=== PATIENT | female | born 1960 | race Caucasian/White ===

== ENCOUNTER 2020-01-28 12:18 | Outpatient (REF) | payer MEDICARE, MEDICAID, SELFPAY ==
--- NOTE | 2020-01-28 13:20 | XR_ITS ---
EXAMINATION: XR KNEE, RIGHT CLINICAL INFORMATION: Knee pain COMPARISON: 07/13/2014 TECHNIQUE: Four views of the right knee. FINDINGS: Alignment is normal. There is moderate lateral joint space narrowing and osteophyte formation of the patellofemoral compartment. Lateral patellar tilt and lateral subluxation is observed on the sunrise view. There are marginal osteophytes of the mildly degenerated medial and lateral tibiofemoral compartments. No fracture or joint effusion. XR/XR knee RT 4V IMPRESSION: * Tricompartment osteoarthritis of the right knee has worsened compared to 07/13/2014. * Lateral patellar subluxation is noted on the sunrise view. 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 No acute osseous injury.
== END 2020-01-28 12:19 | disposition home or self-care (01) ==
LOC: HO.LAB 12:18
PROVIDERS: Absent Provider Internal Medicine; PCP Internal Medicine; Visit Provider Internal Medicine
DX: Z20.828 Contact with and (suspected) exposure to other viral communicable diseases (principal)
CPT/HCPCS: 73564; C9803; U0003

== ENCOUNTER → 2020-03-28 09:21 | Outpatient (BNVA) | payer MEDICARE, MEDICAID, SELFPAY | PROVIDERS: PCP Internal Medicine; Visit Provider Psychiatry & Neurology Neurology | DX: Z13.89 Encounter for screening for other disorder (principal) | CPT/HCPCS: Q3014 ==

== ENCOUNTER → 2020-04-16 20:12 | Outpatient (REF) | payer MEDICARE, MEDICAID, SELFPAY | LOC: HO.SL 20:12 | PROVIDERS: PCP Internal Medicine; Visit Provider Psychiatry & Neurology Neurology | DX: G25.81 Restless legs syndrome (principal); G47.10 Hypersomnia, unspecified; R06.83 Snoring | CPT/HCPCS: 95810 ==

== ENCOUNTER → 2020-05-08 10:53 | Outpatient (REF) | payer MEDICARE, MEDICAID, SELFPAY ==
[2020-05-08 12:13] LABS: Estimated Average Glucose 111 mg/dL; Hemoglobin A1c % 5.5 %
[2020-05-08 12:33] LABS: Alanine Aminotransferase 26 U/L (0-31); Alkaline Phosphatase 62 U/L (39-117); Anion Gap 12 (12-20); Aspartate Amino Transferase 22 U/L (5-31); Bilirubin Total 0.4 mg/dL (0.0-1.0); Blood Urea Nitrogen 12 mg/dL (9-16); Carbon Dioxide 28 mmol/L (22-29); Chloride 106 mmol/L (96-108); Estimated Glomerular Filt Rate > 60; Glucose Random 102 mg/dL (60-115); Potassium 4.1 mmol/L (3.3-5.1); Sodium 142 mmol/L (135-145); Total Protein 7.8 g/dL (6.5-8.0)
[2020-05-08 12:54] LABS: Thyroid Stimulating Hormone 0.58 uIU/mL (0.32-4.0)
[2020-05-08 13:06] LABS: Folate 5.8 ng/mL (> or = 4.0); Vitamin B12 229 pg/mL (200-900)
== END ==
LOC: HO.SL 10:53
PROVIDERS: Absent Provider Psychiatry & Neurology Psychiatry; PCP Internal Medicine; Visit Provider Psychiatry & Neurology Neurology
DX: G47.10 Hypersomnia, unspecified (principal); R06.83 Snoring; E03.9 Hypothyroidism, unspecified; F31.75 Bipolar disorder, in partial remission, most recent episode depressed; Z79.899 Other long term (current) drug therapy
CPT/HCPCS: 36415; 80053; 82607; 82746; 83036; 84443; 95806

== ENCOUNTER → 2020-05-09 09:57 | Outpatient (BNVA) | payer MEDICARE, MEDICAID, SELFPAY | PROVIDERS: PCP Internal Medicine; Visit Provider Orthopaedic Surgery | DX: M22.2X1 Patellofemoral disorders, right knee (principal) | CPT/HCPCS: 99202 ==

== ENCOUNTER → 2020-05-30 10:18 | Outpatient (BNVA) | payer MEDICARE, MEDICAID, SELFPAY | PROVIDERS: PCP Internal Medicine; Visit Provider Psychiatry & Neurology Neurology | DX: Z13.89 Encounter for screening for other disorder (principal) | CPT/HCPCS: Q3014 ==

== ENCOUNTER 2020-08-30 10:46 | Outpatient (RCR) | payer MEDICARE, MEDICAID, SELFPAY ==
--- NOTE | 2020-08-30 14:06 | MHC.PT.EP ---
[facility] [place] Office [place] Office [place] Office [address] Karen Cadena [address] [phone] F: [phone] F: [phone] F: [phone] F: [phone] Physical Therapy Plan of Care Date of Evaluation: Date of Surgery: N/A Diagnosis: pain in unspecified knee Assessment: pt's signs and symptoms consistent w/ general deconditioning and knee OA. pt presents to physical therapy with pain, decreased range of motion, decreased strength, impaired functional mobility, impaired postural awareness, and gait deviations. pt is a fair candidate for skilled PT due to age, potential remediation of impairments, typical disease/condition progression and prognosis, comorbidities, and motivation. pt would benefit from tailored strengthening and stretching exercise program, functional training, gait training, postural re-training, neuromuscular re-education, modalities as needed for pain, equipment safety demonstration. Frequency and Duration: The patient will be seen 2x/wk for 4 wks Short Term Goals: pt will be I /w HEP to promote self-management of condition. pt will remediate B knee extension to 0 degrees to normalize gait on even ground w/ LRAD. Assistant Baseball Coach Goals: pt will report a statistically significant improvement in self-reported outcome measure, LEFI, to promote return to PLOF. pt will ascend/descend 5 stairs w/ LRAD using reciprocal pattern to promote ease in accessing laundry in basement. Treatment Plan: Modalities to reduce pain, spasms and effusion. Manual therapy to restore motion and function. Therapeutic exercise to improve strength and flexibility. Neuromuscular re-education for posture and balance. Therapeutic activities to return to functional activities of daily living. Electronically signed by: Pooja Thrasher PT, DPT Please sign and return to therapist. Thank you for your referral.
--- NOTE | 2020-09-12 13:29 | MHC.PT.DC ---
[facility] [place] Office [place] Office [place] Office [address] Cadena 140 [facility] [phone] F: [phone] F: [phone] F: [phone] F: [phone] Physical Therapy Discharge Report Diagnosis: pain in unspecified knee Date of Surgery: N/A Date of Evaluation: 08/30/20 Date of Discharge: 09/12/20 Treatments to Date: 1 Cancellations to Date: 2 No Shows to Date: 0 Discharge Status: Patient Elected to Stop Discharge Summary: The patient discharged herself from physical therapy. She is discharged from this physical therapy plan of care at this time. Electronically signed by: Pooja Thrasher PT, DPT Please sign and return to therapist. Thank you for your referral.
== END 2020-09-12 13:29 | disposition home or self-care (01) ==
LOC: HO.PT 10:46
PROVIDERS: PCP Internal Medicine; Visit Provider Internal Medicine
DX: M25.569 Pain in unspecified knee (principal)
CPT/HCPCS: 97110; 97161

== ENCOUNTER 2020-11-06 07:13 | Outpatient (REF) | payer MEDICARE, MEDICAID, SELFPAY | END 2020-11-06 07:14 | disposition home or self-care (01) | LOC: HO.HOSX 07:13 | PROVIDERS: Visit Provider Physician Assistant | DX: Z13.89 Encounter for screening for other disorder (principal) ==

== ENCOUNTER 2020-12-25 12:02 | Emergency (ER) | payer MEDICARE, MEDICAID, SELFPAY ==
--- NOTE | ~2020-12-25 | CT_ITS ---
EXAMINATION: CT ABDOMEN AND PELVIS WITHOUT CONTRAST CLINICAL INFORMATION: 60-year-old female with nausea and vomiting. COMPARISON: None TECHNIQUE: Multidetector volumetric imaging was performed from the superior aspect of the liver through the pubic symphysis. Sagittal and coronal reformatted images were obtained on the technologist's workstation. This CT examination was performed using dose optimization techniques as appropriate, variously including the following: *Automated exposure control *Adjustment of mA and/or kV according to patient size (this includes techniques or standardized protocols for targeted exams where dose is matched to indication/reason for exam; i.e. extremities or head) *Use of iterative reconstruction technique DLP: 869 mGy-cm FINDINGS: Visualized lung bases are well aerated. The liver demonstrates normal size, contour and attenuation. The gallbladder is normal in appearance. The pancreas, spleen and adrenal glands are unremarkable. Symmetrically sized kidneys. No renal calculi or hydronephrosis bilaterally. Normal caliber loops of small and large bowel. Normal appendix. Normal caliber abdominal aorta. No retroperitoneal lymphadenopathy. Tiny fat-containing umbilical hernia. The bladder is normal in appearance. Unremarkable CT appearance of the uterus. No gross free pelvic fluid. No inguinal lymphadenopathy. Moderate diffuse degenerative changes of the spine. Moderate to severe degenerative changes of the right hip. CT/CT abdomen pelvis wo con IMPRESSION: -No CT evidence for acute abnormality within the abdomen or pelvis. -Moderate to severe degenerative changes of the right hip.
--- NOTE | ~2020-12-25 | XR_ITS ---
EXAMINATION: XR CHEST CLINICAL INFORMATION: Shortness of breath COMPARISON: None TECHNIQUE: Frontal view of the chest was obtained. FINDINGS: Cardiac silhouette is normal in size. The lungs are mildly hypoinflated. There is mild asymmetric elevation of the right hemidiaphragm. There is no lobar consolidation. No pleural effusion or pneumothorax. Mild degenerative changes of the spine. XR/XR chest 1V IMPRESSION: No acute pulmonary pathology.
--- NOTE | 2020-12-25 12:11 | ECG_ITS ---
Test Reason : chest pain Blood Pressure : / mmHG Vent. Rate : 086 BPM Atrial Rate : 086 BPM P-R Int : 156 ms QRS Dur : 128 ms QT Int : 420 ms P-R-T Axes : 020 -47 089 degrees QTc Int : 502 ms Normal sinus rhythm Left axis deviation RSR' or QR pattern in V1 suggests right ventricular conduction delay Left anterior fascicular block Nonspecific T wave abnormality Lateral leads Abnormal ECG Intra-ventricular conduction delay is new Left anterior fascicular block is new T-wave inversion in Lateral leads is new Referred By: Adelia Belle Electronically Signed By:UYEN VANCE MD
[2020-12-25 12:13] VITALS: BP 131/83; BP 160/90; PULSE 93; PULSE 98; TEMP 36.7; O2SAT 100; BMI 42.1
--- NOTE | 2020-12-25 12:23 | ED.NAVMDI ---
HPI - Nausea/Vomiting/Diarrhea General Chief complaint: Nausea/Vomiting/Diarrhea Stated complaint: N/V X'S 2 HOURS, FULLY VACCINATED Time Seen by Provider: 12/25/20 12:11 History of Present Illness HPI Narrative: Patient is a 60-year-old female presents today with having nausea vomiting. No diarrhea. Symptoms ongoing for about 2 days. Patient has a history of bipolar. History of being on lithium. No fever no chills no chest pain or diaphoresis. Patient from home. No cough no congestion or upper respiratory symptoms. Patient is vaccinated for COVID. Vomiting mostly food. No history of abdominal surgery in the past. Related Data Home Medications Medication Instructions Recorded Confirmed atorvastatin 20 mg tablet mg PO 12/30/19 11/24/20 lithium carbonate 450 mg mg PO 12/30/19 11/24/20 tablet,extended release pantoprazole 40 mg tablet,delayed mg PO 12/30/19 11/24/20 release quetiapine 25 mg tablet 50 mg PO BEDTIME tab 12/30/19 07/28/20 cholecalciferol (vitamin D3) 50 50 mcg PO DAILY 03/22/20 11/24/20 mcg (2,000 unit) capsule vortioxetine 20 mg tablet 20 mg PO DAILY 03/22/20 11/24/20 cariprazine 3 mg capsule mg PO 07/14/20 11/24/20 bupropion HCl 150 mg tablet,12 hr mg PO 11/24/20 11/24/20 sustained-release zolpidem 5 mg tablet 25 mg PO BEDTIME tab 11/24/20 11/24/20 Previous Rx's Medication Instructions Recorded levothyroxine 100 mcg tablet 75 mcg PO DAILY #90 tab 02/15/20 ibuprofen 800 mg tablet 800 mg PO Q8H #90 tab 05/09/20 ondansetron HCl 4 mg tablet 4 mg PO Q8H PRN #10 tab 12/25/20 (Zofran) Allergies Allergy/AdvReac Type Severity Reaction Status Date / Time No Known Allergies Allergy Verified 11/24/20 10:29 Review of Systems Review of Systems: Positive nausea vomiting PMFSH Past Medical History Attestation statement: The following information was validated with the patient. Medical History Knee pain Morbid obesity Post-menopausal Screening for breast cancer Screening for colon cancer Surgical History No pertinent past surgical history Family History Family History Father Diabetes Hypertension CVD (cardiovascular disease) Mother Diabetes Sister Multiple sclerosis Brother Acute Crohn's disease Other Mental health disorder Social History Social History Housing: House Alcohol intake: current Alcohol intake frequency: holidays/special occasions only Patient Tobacco Use Status: Never used Tobacco Years Smoked: 1 Use of substances other than those prescribed or required for medical reasons: No Advance Directives: No Advance Directives Information Provided: No Patient : No service: No Current occupational status: unemployed Physical Exam Vital Signs: Vital Signs: Last Vital Signs Temp 97.9 F 12/25/20 13:03 Pulse 85 12/25/20 13:03 Resp 16 12/25/20 13:03 BP 140/65 H 12/25/20 13:03 Pulse Ox 97 12/25/20 13:03 Body Mass Index 42.1 Appearance: Alert. Oriented X3. No acute distress. Eyes: Pupils equal, round and reactive to light. ENT: Pharynx normal. Neck: Normal inspection. Neck supple. No lymph nodes noted. No crepitus CVS: Normal heart rate and rhythm. Pulses normal. Normal S1 and S2 Respiratory: No respiratory distress. Breath sounds normal. No Wheezing. No rales Abdomen: Soft and nontender. No rigidity. No distention. good BS x4 Skin: Skin warm and dry. Normal skin color. Normal skin turgor. Extremities: No lower extremity edema. Neurovascular intact to all extremities. No Lacerations. No Rash Neuro: Oriented X 3. No motor deficit. No sensory deficit. Moving all extermities. No slurred speech MDM - Nausea/Vomiting/Diarrhea MDM Narrative Medical decision making narrative: Patient's CT scan of the abdomen pelvis showed no acute evidence of obstruction. Labs are normal. Chest x-ray was negative for any acute evidence of pneumonia. Patient's BNP normal no evidence for congestive heart failure. Patient's EKG did showed a sinus pattern heart rate was 80 OH is normal QRS suggestive of in intraventricular delay. There is also a QTC that was 500. Patient has no acute ST segment elevation. Well appearing. Patient's troponin was negative. Liver profile normal symptom has since resolved. Patient's lithium slightly elevated 1.5 with a fairly normal kidney function will discharge patient home. In stable condition. Medical Records Attestation: I reviewed the patient's medical records. Lab Data Attestation: I reviewed the patient's lab results. Result diagrams: 12/25/20 13:01 12/25/20 13: Labs: Lab Results 12/25/20 12/25/20 12/25/20 Range/Units 13: 13: 13: WBC 8.5 (4.8-10.8) X10*3/uL RBC 4.77 (4.20-5.50) X10*6/uL Hgb 14.2 (12.0-16.0) g/dl Hct 43.0 (37.0-47.0) % MCV 90.1 (80.0-98.0) fL MCH 29.8 (27.0-33.0) pg MCHC 33.0 (31.0-35.0) g/dl RDW 13.2 (11.0-16.0) % Plt Count 233 (160-400) X10*3/uL MPV 10.8 (9.4-12.3) fL Immature Gran % (Auto) 0.6 H (0.0-0.4) % Neut % (Auto) 69.4 (45-73) % Lymph % (Auto) 18.9 L (20-40) % [place] % (Auto) 9.4 (2-11) % Eos % (Auto) 1.2 (0-4) % Baso % (Auto) 0.5 (0-2) % Lymph # (Auto) 1.6 (1.2-4.9) X10*3/uL [place] # (Auto) 0.8 (0.1-1.2) X10*3/uL Eos # (Auto) 0.1 (0.0-0.4) X10*3/uL Baso # (Auto) 0.0 (0.0-0.2) X10*3/uL Abs Immat Gran (auto) 0.05 H (0.00-0.03) X10*3/uL Absolute Neuts (auto) 5.9 (2.0-8.3) x10*3/uL Absolute Nucleated RBC 0.000 (0.0-0.012) X10*3/uL Nucleated RBC % (auto) 0.0 (0.0-0.2) /100WBC Sodium 138 (135-145) mmol/L Potassium 3.1 L D (3.3-5.1) mmol/L Chloride 102 (96-108) mmol/L Carbon Dioxide 26 (22-29) mmol/L Anion Gap 13 (12-20) BUN 14 (9-16) mg/dL Creatinine 1.20 (0.5-1.4) mg/dL Estim Creat Clear Calc 53.0 Estimated GFR 46 Random Glucose 128 H (60-115) mg/dL Calcium 9.8 D (8.4-10.2) mg/dL Total Bilirubin 0.8 (0.0-1.0) mg/dL Direct Bilirubin 0.4 (0.0-0.5) mg/dL AST 24 (5-31) U/L ALT 24 (0-31) U/L Alkaline Phosphatase 87 D (39-117) U/L Troponin I High Sens (<3.5-17.0) ng/L B-Natriuretic Peptide (<100) pg/mL Total Protein 8.0 (6.5-8.0) g/dL Albumin 4.0 (3.5-5.0) g/dL [place] 1.51 H* (0.60-1.20) mmol/L 12/25/20 12/25/20 Range/Units 13:39 13:39 WBC (4.8-10.8) X10*3/uL RBC (4.20-5.50) X10*6/uL Hgb (12.0-16.0) g/dl Hct (37.0-47.0) % MCV (80.0-98.0) fL MCH (27.0-33.0) pg MCHC (31.0-35.0) g/dl RDW (11.0-16.0) % Plt Count (160-400) X10*3/uL MPV (9.4-12.3) fL Immature Gran % (Auto) (0.0-0.4) % Neut % (Auto) (45-73) % Lymph % (Auto) (20-40) % [place] % (Auto) (2-11) % Eos % (Auto) (0-4) % Baso % (Auto) (0-2) % Lymph # (Auto) (1.2-4.9) X10*3/uL [place] # (Auto) (0.1-1.2) X10*3/uL Eos # (Auto) (0.0-0.4) X10*3/uL Baso # (Auto) (0.0-0.2) X10*3/uL Abs Immat Gran (auto) (0.00-0.03) X10*3/uL Absolute Neuts (auto) (2.0-8.3) x10*3/uL Absolute Nucleated RBC (0.0-0.012) X10*3/uL Nucleated RBC % (auto) (0.0-0.2) /100WBC Sodium (135-145) mmol/L Potassium (3.3-5.1) mmol/L Chloride (96-108) mmol/L Carbon Dioxide (22-29) mmol/L Anion Gap (12-20) BUN (9-16) mg/dL Creatinine (0.5-1.4) mg/dL Estim Creat Clear Calc Estimated GFR Random Glucose (60-115) mg/dL Calcium (8.4-10.2) mg/dL Total Bilirubin (0.0-1.0) mg/dL Direct Bilirubin (0.0-0.5) mg/dL AST (5-31) U/L ALT (0-31) U/L Alkaline Phosphatase (39-117) U/L Troponin I High Sens 5.8 (<3.5-17.0) ng/L B-Natriuretic Peptide 12 (<100) pg/mL Total Protein (6.5-8.0) g/dL Albumin (3.5-5.0) g/dL P[place] (0.60-1.20) mmol/L Discharge Plan Discharge Clinical Impression: Vomiting Patient Disposition: Home, Self-Care Instructions: Acute Nausea and Vomiting (ED) Prescriptions: New ondansetron HCl [Zofran] 4 mg tablet 4 mg PO Q8H PRN (Reason: nausea and vomiting) Qty: 10 RF: 0 No Action levothyroxine 100 mcg tablet 75 mcg PO DAILY Qty: 90 RF: 8 pantoprazole 40 mg tablet,delayed release (DR/EC) PO RF: 0 atorvastatin 20 mg tablet PO RF: 0 lithium carbonate 450 mg tablet extended release PO RF: 0 quetiapine 25 mg tablet 50 mg PO BEDTIME RF: 0 cholecalciferol (vitamin D3) 50 mcg (2,000 unit) capsule 50 mcg PO DAILY RF: 0 vortioxetine 20 mg tablet 20 mg PO DAILY RF: 0 Vraylar 3 mg capsule PO RF: 0 bupropion HCl 150 mg tablet sustained-release 12 hr PO RF: 0 zolpidem 5 mg tablet 25 mg PO BEDTIME RF: 0 ibuprofen 800 mg tablet 800 mg PO Q8H Qty: 90 RF: 3 Referrals: Arvind Baez MD [Primary Care Provider] - 2 days
[2020-12-25 13:03] VITALS: BP 140/65; PULSE 85; RESP 16; TEMP 36.6; O2SAT 97
[2020-12-25] MEDS: 0.9 % Sodium Chloride 1,000 ML 999 ML IV (13:03)
[2020-12-25 13:05] LABS: MANUAL DIFF FLAG NO
[2020-12-25 13:11] LABS: Basophils Percent Auto 0.5 % (0-2); Eosinophils Absolute Auto 0.1 X10*3/uL (0.0-0.4); Eosinophils Percent Auto 1.2 % (0-4); Hemoglobin 14.2 g/dl (12.0-16.0); Imm Gran Abs Auto 0.05 X10*3/uL (0.00-0.03); Imm Gran Pct Auto 0.6 % (0.0-0.4); Lymphocytes Absolute Auto 1.6 X10*3/uL (1.2-4.9); Lymphocytes Percent Auto 18.9 % (20-40); Mean Corpuscular Hemoglobin 29.8 pg (27.0-33.0); Mean Corpuscular Volume 90.1 fL (80.0-98.0); Mean Platelet Volume 10.8 fL (9.4-12.3); Monocytes Absolute Auto 0.8 X10*3/uL (0.1-1.2); Monocytes Percent Auto 9.4 % (2-11); Neutrophils Absolute Auto 5.9 x10*3/uL (2.0-8.3); Neutrophils Percent Auto 69.4 % (45-73); Platelet Count 233 X10*3/uL (160-400); Red Blood Count 4.77 X10*6/uL (4.20-5.50); Red Cell Distribution Width 13.2 % (11.0-16.0); White Blood Count 8.5 X10*3/uL (4.8-10.8)
[2020-12-25] MEDS: ondansetron HCL 4 MG/2 ML VIAL IVPUSH (13:13)
[2020-12-25 13:26] LABS: Lithium 1.51 mmol/L (0.60-1.20)
[2020-12-25 13:28] LABS: Alanine Aminotransferase 24 U/L (0-31); Alkaline Phosphatase 87 U/L (39-117); Anion Gap 13 (12-20); Aspartate Amino Transferase 24 U/L (5-31); Bilirubin Direct 0.4 mg/dL (0.0-0.5); Bilirubin Total 0.8 mg/dL (0.0-1.0); Blood Urea Nitrogen 14 mg/dL (9-16); Calcium 9.8 mg/dL (8.4-10.2); Carbon Dioxide 26 mmol/L (22-29); Chloride 102 mmol/L (96-108); Estimated Glomerular Filt Rate 46; Glucose Random 128 mg/dL (60-115); Potassium 3.1 mmol/L (3.3-5.1); Sodium 138 mmol/L (135-145)
[2020-12-25 14:09] LABS: B Type Natriuretic Peptide 12 pg/mL (<100)
[2020-12-25 14:10] LABS: Troponin-I High Sensitivity 5.8 ng/L (<3.5-17.0)
== END 2020-12-25 15:34 | disposition home or self-care (01) ==
PROVIDERS: Emergency Provider Emergency Medicine Emergency Medical Services; PCP Internal Medicine
DX: R11.2 Nausea with vomiting, unspecified (principal); R10.9 Unspecified abdominal pain; R06.02 Shortness of breath; R07.89 Other chest pain; F31.9 Bipolar disorder, unspecified; Z79.899 Other long term (current) drug therapy
CPT/HCPCS: 36415; 71045; 74176; 80048; 80076; 80178; 83880; 84484; 85025; 93005; 96361; 96374; 99284; J2405

== ENCOUNTER 2021-01-24 12:29 | Inpatient (IN) | payer MEDICARE, MEDICAID, SELFPAY ==
--- NOTE | 2021-01-24 | ECG_ITS ---
Test Reason : med clearance Blood Pressure : / mmHG Vent. Rate : 072 BPM Atrial Rate : 072 BPM P-R Int : 174 ms QRS Dur : 114 ms QT Int : 434 ms P-R-T Axes : 022 -44 044 degrees QTc Int : 475 ms Normal sinus rhythm Left axis deviation Left ventricular hypertrophy ( R in aVL , Hero product , Romhilt-Simon ) Abnormal ECG When compared with ECG of 25-DEC-2020 12:50, T wave inversion no longer evident in Lateral leads Referred By: Regan Quick Electronically Signed By:Robert Carrillo
--- NOTE | ~2021-01-24 | MR_ITS ---
EXAMINATION: MR BRAIN WITHOUT CONTRAST CLINICAL INFORMATION: Confusion. Weakness. Hypoxic injury. COMPARISON: CT head from 05/29/2009. TECHNIQUE: MRI of the brain was obtained using routine sequences without contrast. FINDINGS: No focal restricted diffusion is demonstrated to suggest acute or subacute cerebral ischemia. No evidence of acute or chronic hemorrhagic products on heme-sensitive imaging. Scattered periventricular and deep white matter T2 FLAIR hyperintensities consistent with mild underlying microangiopathy. Proportional prominence of the ventricles and sulcal spaces without evidence of obstructive hydrocephalus. No abnormal mass effect. No midline shift. Normal appearance of the pituitary gland. Normal positioning of the cerebellar tonsils. Normal arterial and venous vascular flow voids are present. Normal, homogeneous marrow signal. Mild mucosal thickening of the paranasal sinuses. No signal abnormalities within the mastoids. MR/MR head/brain wo con IMPRESSION: 1. No acute intracranial abnormalities. 2. Mild underlying microangiopathy and generalized cerebral volume loss.
[2021-01-24 13:09] VITALS: BP 145/89; PULSE 92; RESP 18; TEMP 37.2; O2SAT 93; BMI 41.6
--- NOTE | 2021-01-24 14:49 | ED.PSYCH ---
HPI - Psych General Chief Complaint: Psychiatric Symptoms Stated Complaint: psych eval Time Seen by Provider: 01/24/21 12:36 Source: patient, old records reviewed ([facility] ED notes from 01/04/2021) and other (Discussion with Dr. Iqbal) Mode of arrival: ambulatory Limitations: other (Patient has memory deficits regarding her care) History of Present Illness HPI Narrative: 60-year-old female who was brought to the emergency department for evaluation, medical clearance for admission to the psychiatric service. The patient was initially seen at [facility] on 01/04/2021 for altered mental status. The patient states that she does not have a very good memory of these events. She states that she was talking to a friend on the phone and her friend thought that the patient speech was slurred. The friend called 911 and police did a well check on the patient. According to the notes from [facility] the patient's house was in ?disgusting and there was feces smeared all over the bed and the house smelled like urine . The patient was evaluated at [facility] emergency department and then transferred to a rehab center. The patient states that she was at rehab for 2-3 weeks and got out today and her sister brought to the [facility] for further evaluation of her psychiatric condition The patient states that while she was at the rehab center she was having both visual and auditory hallucinations. She states that she was also having paranoid thoughts and difficulty with her memory. The patient states that she has been having pain in her right knee and right leg and now is using a walker to ambulate. She states she was also getting physical therapy to her right lower extremity. Dr. Iqbal was concerned that patient may have accidentally overdosed 2-3 weeks prior and this may have been the cause for her slurred speech. In reviewing the records at [facility], the patient did not have any brain imaging studies. Dr. Iqbal is requesting an MRI of the brain to rule out stroke verses possible hypoxic injury or other causes for her change in mental status. Related Data Home Medications Medication Instructions Recorded Confirmed atorvastatin 20 mg tablet 20 mg PO BEDTIME 12/30/19 01/24/21 lithium carbonate 450 mg 450 mg PO DAILY 12/30/19 01/24/21 tablet,extended release pantoprazole 40 mg tablet,delayed 40 mg PO DAILY 12/30/19 01/24/21 release vortioxetine 20 mg tablet 20 mg PO DAILY 03/22/20 01/24/21 cariprazine 3 mg capsule 3 mg PO DAILY 07/14/20 01/24/21 zolpidem 5 mg tablet 5 mg PO BEDTIME tab 11/24/20 01/24/21 bupropion HCl 200 mg tablet,12 hr 1 tab PO QAM 01/24/21 01/24/21 sustained-release levothyroxine 100 mcg tablet 100 mcg PO DAILY 01/24/21 01/24/21 Previous Rx's Medication Instructions Recorded ondansetron HCl 4 mg tablet 4 mg PO Q8H PRN #10 tab 12/25/20 (Zofran) Allergies Allergy/AdvReac Type Severity Reaction Status Date / Time No Known Allergies Allergy Verified 11/24/20 10:29 Review of Systems Review of Systems: Yes all other systems are reviewed and are negative [facility] Past Medical History Medical History Knee pain Morbid obesity Post-menopausal Screening for breast cancer Screening for colon cancer Surgical History No pertinent past surgical history Family History Family History Father Diabetes Hypertension CVD (cardiovascular disease) Mother Diabetes Sister Multiple sclerosis Brother Acute Crohn's disease Other Mental health disorder Social History Social History Housing: House Alcohol intake: current Alcohol intake frequency: holidays/special occasions only Patient Tobacco Use Status: Never used Tobacco Years Smoked: 1 Advance Directives: No Advance Directives Information Provided: No Patient : No service: No Current occupational status: unemployed Physical Exam Vital Signs: Vital Signs: Last Vital Signs Temp 98.9 F 01/24/21 13:09 Pulse 92 01/24/21 13:09 Resp 18 01/24/21 13:09 BP 145/89 H 01/24/21 13:09 Pulse Ox 93 01/24/21 13:09 BMI result Body Mass Index 41.6 Const: Other: Very pleasant and cooperative female patient, she does not appear to be in distress. She is able to recount some details of events over the last 2-3 weeks but seemed to have some memory deficits and difficulty with discussing the timing of events. She does not appear to be in any distress HENMT: Head: Yes normal to inspection, Yes normocephalic and Yes atraumatic Ears: external ears normal General nose exam: Normal external nose present Face and sinus: Yes normal facial exam Mouth: Normal oral and palatal mucosa present Throat: Yes posterior oropharynx normal Eyes: General: appearance normal, both eyes and all related structures Pupils: Equal, round and reactive pupils present Neck: Neck: Yes normal visual inspection, Yes no lymphadenopathy, Yes trachea midline and Yes supple Chest: Chest palpation & inspection: normal inspection of the chest and normal palpation of entire chest wall Resp: Effort & Inspection: normal respiratory effort and able to speak in complete sentences Auscultation: clear to auscultation bilaterally Cardio: Rate: regular rate Rhythm: regular rhythm Heart sounds: S1 normal heart sound present, S2 normal heart sound present and no murmurs GI: Inspection: Yes normal to inspection Palpation (GI): Soft to palpation, nontender and no guarding Auscultation: normal bowel sounds : General: Yes no CVA tenderness Back/Spine/Pelvis: Back: no CVA tenderness Skin: General skin exam: no rashes or lesions noted Neuro: Cranial nerves: Yes CN's II-XII intact bilaterally and Yes Equal, round and reactive pupils present Cognition (Neuro): normal cognition Motor exam (neuro): 5/5 motor strength present throughout Extrem: General: Yes normal to inspection Psych: Appearance: grossly normal Speech and movement: Normal speech and movement present Affect: normal affect Attitude: cooperative Thought process: Normal thought process present Thought content: Normal thought content present, suicidality and no homicidality Course Course Course Narrative: 60-year-old female who presents emergency department for medical clearance for admission to the psychiatric service. The see HPI, while the patient was in rehab for the past 2-3 weeks , the patient states that been having auditory and visual hallucinations well as paranoid thoughts. She states that she does not have these problems at this time. Vital signs were unremarkable. Physical examination including neurologic exam was unremarkable. I ordered the following on the patient: CBC, CMP, COVID-19, urine drug screen, alcohol level, lipase, lithium level, salicylate level, acetaminophen level, urinalysis. I also ordered an MRI of the brain without contrast. 1937: Laboratory evaluation: CBC was normal. Elevated glucose of 180, elevated AST and ALT of 39 and 42, normal TSH. urinalysis was normal. U tox was negative. Alcohol is below detectable limits. Salicylate and acetaminophen were below detectable limits. Sisseton was subtherapeutic at 0.36. The patient will be admitted to the psychiatric service further evaluation and treatment. [facility] - Psych Lab Data Result diagrams: 01/24/21 15:20 01/24/21 15:20 Labs: Lab Results 01/24/21 01/24/21 01/24/21 Range/Units 14:46 15:20 15:20 WBC 9.5 (4.8-10.8) X10*3/uL RBC 4.56 (4.20-5.50) X10*6/uL Hgb 13.5 (12.0-16.0) g/dl Hct 43.7 (37.0-47.0) % MCV 95.8 (80.0-98.0) fL MCH 29.6 (27.0-33.0) pg MCHC 30.9 L (31.0-35.0) g/dl RDW 15.0 (11.0-16.0) % Plt Count 285 (160-400) X10*3/uL MPV 10.5 (9.4-12.3) fL Immature Gran % (Auto) 0.3 (0.0-0.4) % Neut % (Auto) 57.7 (45-73) % Lymph % (Auto) 31.2 (20-40) % Pershing % (Auto) 7.0 (2-11) % Eos % (Auto) 3.2 (0-4) % Baso % (Auto) 0.6 (0-2) % Lymph # (Auto) 3.0 (1.2-4.9) X10*3/uL Pershing # (Auto) 0.7 (0.1-1.2) X10*3/uL Eos # (Auto) 0.3 (0.0-0.4) X10*3/uL Baso # (Auto) 0.1 (0.0-0.2) X10*3/uL Abs Immat Gran (auto) 0.03 (0.00-0.03) X10*3/uL Absolute Neuts (auto) 5.5 (2.0-8.3) x10*3/uL Absolute Nucleated RBC 0.000 (0.0-0.012) X10*3/uL Nucleated RBC % (auto) 0.0 (0.0-0.2) /100WBC Sodium 140 (135-145) mmol/L Potassium 4.2 D (3.3-5.1) mmol/L Chloride 106 (96-108) mmol/L Carbon Dioxide 27 (22-29) mmol/L Anion Gap 11 L (12-20) BUN 13 (9-16) mg/dL Creatinine 1.23 (0.5-1.4) mg/dL Estim Creat Clear Calc 51.3 Estimated GFR 44 Random Glucose 118 H (60-115) mg/dL Calcium 9.9 (8.4-10.2) mg/dL Total Bilirubin 0.4 (0.0-1.0) mg/dL AST 39 H D (5-31) U/L ALT 42 H (0-31) U/L Alkaline Phosphatase 73 (39-117) U/L Total Protein 8.3 H (6.5-8.0) g/dL Albumin 4.1 (3.5-5.0) g/dL Lipase 25 (8-78) U/L TSH 1.85 (0.32-4.0) uIU/mL Urine Color Urine Appearance Urine pH (5.0-8.0) Ur Specific Hunter (1.005-1.025) Urine Protein (NEG-TRACE) MG/DL Urine Glucose (UA) (NEG) MG/DL Urine Ketones (NEG) MG/DL Urine Blood (NEG) Urine Nitrite (NEG) Ur Leukocyte Esterase (NEG) Salicylates < 5.0 L (15-30) mg/dL Urine Opiates Screen (Not Detect) Urine Fentanyl Screen (Not Detect) Acetaminophen < 1 (<30) mcg/mL Ur Barbiturates Screen (Not Detect) Ur Phencyclidine Scrn (Not Detect) Ur Amphetamines Screen (Not Detect) U Benzodiazepines Scrn (Not Detect) Sisseton (0.60-1.20) mmol/L Urine Cocaine Screen (Not Detect) U Marijuana (THC) Screen (Not Detect) Ethyl Alcohol mg/dL COVID-19 ([facility]) Negative (Negative) COVID-19 Clin Com See Note 01/24/21 01/24/21 01/24/21 Range/Units 15:20 15:20 16:29 WBC (4.8-10.8) X10*3/uL RBC (4.20-5.50) X10*6/uL Hgb (12.0-16.0) g/dl Hct (37.0-47.0) % MCV (80.0-98.0) fL MCH (27.0-33.0) pg MCHC (31.0-35.0) g/dl RDW (11.0-16.0) % Plt Count (160-400) X10*3/uL MPV (9.4-12.3) fL Immature Gran % (Auto) (0.0-0.4) % Neut % (Auto) (45-73) % Lymph % (Auto) (20-40) % Pershing % (Auto) (2-11) % Eos % (Auto) (0-4) % Baso % (Auto) (0-2) % Lymph # (Auto) (1.2-4.9) X10*3/uL Pershing # (Auto) (0.1-1.2) X10*3/uL Eos # (Auto) (0.0-0.4) X10*3/uL Baso # (Auto) (0.0-0.2) X10*3/uL Abs Immat Gran (auto) (0.00-0.03) X10*3/uL Absolute Neuts (auto) (2.0-8.3) x10*3/uL Absolute Nucleated RBC (0.0-0.012) X10*3/uL Nucleated RBC % (auto) (0.0-0.2) /100WBC Sodium (135-145) mmol/L Potassium (3.3-5.1) mmol/L Chloride (96-108) mmol/L Carbon Dioxide (22-29) mmol/L Anion Gap (12-20) BUN (9-16) mg/dL Creatinine (0.5-1.4) mg/dL Estim Creat Clear Calc Estimated GFR Random Glucose (60-115) mg/dL Calcium (8.4-10.2) mg/dL Total Bilirubin (0.0-1.0) mg/dL AST (5-31) U/L ALT (0-31) U/L Alkaline Phosphatase (39-117) U/L Total Protein (6.5-8.0) g/dL Albumin (3.5-5.0) g/dL Lipase (8-78) U/L TSH (0.32-4.0) uIU/mL Urine Color Urine Appearance Urine pH (5.0-8.0) Ur Specific Hunter (1.005-1.025) Urine Protein (NEG-TRACE) MG/DL Urine Glucose (UA) (NEG) MG/DL Urine Ketones (NEG) MG/DL Urine Blood (NEG) Urine Nitrite (NEG) Ur Leukocyte Esterase (NEG) Salicylates (15-30) mg/dL Urine Opiates Screen Not Detected (Not Detect) Urine Fentanyl Screen Not Detected (Not Detect) Acetaminophen (<30) mcg/mL Ur Barbiturates Screen Not Detected (Not Detect) Ur Phencyclidine Scrn Not Detected (Not Detect) Ur Amphetamines Screen Not Detected (Not Detect) U Benzodiazepines Scrn Not Detected (Not Detect) Sisseton 0.36 L (0.60-1.20) mmol/L Urine Cocaine Screen Not Detected (Not Detect) U Marijuana (THC) Screen Not Detected (Not Detect) Ethyl Alcohol < 10 mg/dL COVID-19 ([facility]) (Negative) COVID-19 Clin Com 01/24/21 Range/Units 16:29 WBC (4.8-10.8) X10*3/uL RBC (4.20-5.50) X10*6/uL Hgb (12.0-16.0) g/dl Hct (37.0-47.0) % MCV (80.0-98.0) fL MCH (27.0-33.0) pg MCHC (31.0-35.0) g/dl RDW (11.0-16.0) % Plt Count (160-400) X10*3/uL MPV (9.4-12.3) fL Immature Gran % (Auto) (0.0-0.4) % Neut % (Auto) (45-73) % Lymph % (Auto) (20-40) % Pershing % (Auto) (2-11) % Eos % (Auto) (0-4) % Baso % (Auto) (0-2) % Lymph # (Auto) (1.2-4.9) X10*3/uL Pershing # (Auto) (0.1-1.2) X10*3/uL Eos # (Auto) (0.0-0.4) X10*3/uL Baso # (Auto) (0.0-0.2) X10*3/uL Abs Immat Gran (auto) (0.00-0.03) X10*3/uL Absolute Neuts (auto) (2.0-8.3) x10*3/uL Absolute Nucleated RBC (0.0-0.012) X10*3/uL Nucleated RBC % (auto) (0.0-0.2) /100WBC Sodium (135-145) mmol/L Potassium (3.3-5.1) mmol/L Chloride (96-108) mmol/L Carbon Dioxide (22-29) mmol/L Anion Gap (12-20) BUN (9-16) mg/dL Creatinine (0.5-1.4) mg/dL Estim Creat Clear Calc Estimated GFR Random Glucose (60-115) mg/dL Calcium (8.4-10.2) mg/dL Total Bilirubin (0.0-1.0) mg/dL AST (5-31) U/L ALT (0-31) U/L Alkaline Phosphatase (39-117) U/L Total Protein (6.5-8.0) g/dL Albumin (3.5-5.0) g/dL Lipase (8-78) U/L TSH (0.32-4.0) uIU/mL Urine Color DK YELLOW Urine Appearance CLEAR Urine pH 6.0 (5.0-8.0) Ur Specific Hunter 1.025 (1.005-1.025) Urine Protein NEG (NEG-TRACE) MG/DL Urine Glucose (UA) NEG (NEG) MG/DL Urine Ketones NEG (NEG) MG/DL Urine Blood NEG (NEG) Urine Nitrite NEG (NEG) Ur Leukocyte Esterase NEG (NEG) Salicylates (15-30) mg/dL Urine Opiates Screen (Not Detect) Urine Fentanyl Screen (Not Detect) Acetaminophen (<30) mcg/mL Ur Barbiturates Screen (Not Detect) Ur Phencyclidine Scrn (Not Detect) Ur Amphetamines Screen (Not Detect) U Benzodiazepines Scrn (Not Detect) Sisseton (0.60-1.20) mmol/L Urine Cocaine Screen (Not Detect) U Marijuana (THC) Screen (Not Detect) Ethyl Alcohol mg/dL COVID-19 ([facility]) (Negative) COVID-19 Clin Com Discharge Plan Discharge Clinical Impression: Depressed affect Patient Disposition: Admitted As Inpatient Interventions: Admission Worksheet (ED) Last Done: 01/24/21 18:11 Discharge Date/Time: 01/24/21 18:12
[2021-01-24 15:17] LABS: COVID-19 Test Negative (Negative)
[2021-01-24 15:25] LABS: MANUAL DIFF FLAG NO
[2021-01-24 15:27] LABS: Basophils Absolute Auto 0.1 X10*3/uL (0.0-0.2); Basophils Percent Auto 0.6 % (0-2); Eosinophils Absolute Auto 0.3 X10*3/uL (0.0-0.4); Eosinophils Percent Auto 3.2 % (0-4); Hematocrit 43.7 % (37.0-47.0); Hemoglobin 13.5 g/dl (12.0-16.0); Imm Gran Abs Auto 0.03 X10*3/uL (0.00-0.03); Imm Gran Pct Auto 0.3 % (0.0-0.4); Lymphocytes Percent Auto 31.2 % (20-40); Mean Corpuscular HGB Conc 30.9 g/dl (31.0-35.0); Mean Corpuscular Hemoglobin 29.6 pg (27.0-33.0); Mean Corpuscular Volume 95.8 fL (80.0-98.0); Mean Platelet Volume 10.5 fL (9.4-12.3); Monocytes Absolute Auto 0.7 X10*3/uL (0.1-1.2); Neutrophils Absolute Auto 5.5 x10*3/uL (2.0-8.3); Neutrophils Percent Auto 57.7 % (45-73); Platelet Count 285 X10*3/uL (160-400); Red Blood Count 4.56 X10*6/uL (4.20-5.50); White Blood Count 9.5 X10*3/uL (4.8-10.8)
[2021-01-24 15:39] LABS: Lithium 0.36 mmol/L (0.60-1.20)
--- NOTE | 2021-01-24 15:40 | MHC.CARE ---
Pt is a 60 y/o Azeri speaking, , female who is previously unknown to the CARE Team.? Today, pt self-presented to the ED after speaking with Dr. Iqbal.? Dr. Iqbal explains to the CARE Team that he asked pt to present to the ED after he noted that she was experiencing sequential memory problems and upon receiving reports that her speech appeared slurred.? Pt reportedly had a fall and was in a physical rehab facility prior to her arrival here.? Pt has been medically cleared and is being assessed by the CARE Team to determine appropriate treatment recommendations.? Pt?s last inpatient hospitalization was approximately 7 years ago. ?Pt is alert and oriented x4, appears her stated age, and appears well groomed and is dressed in hospital attire.? Her speech and eye contact are within normal limits, though her thoughts appear, at times, disjointed.? She reports sleep and appetite as ?Ok?.? When asked to describe her mood, she began speaking on another topic.? Pt?s affect was flat.? She does not appear to be delusional or experiencing symptoms of psychosis.? She denies AVH though she did say she recently experienced auditory hallucinations while at rehab.? Pt denies SI, HI, and self-harm urges. Insight, judgement, memory, and concentration appear fair.? Impulse control was not assessed. Plan is for pt to be admitted to an inpatient psychiatric unit for safety and containment, mood stabilization, medication evaluation, participation in therapeutic milieu, and discharge planning to include pt?s current outpatient providers. Pt is agreeable to inpt admission.? CARE Team will conduct a statewide adult bed search. If placement is not secured within 24hrs, CARE Team will conduct a mental status update. Per Dr. Iqbal, pt requires a locked unit, and would not be safe in a lower level of care. This disposition is discussed with CARE Team by [facility] donor recruiter, Dr. Parker and discussed with ED Provider Harlan Gresham and pt?s nurse RN Harlan Allen. F31.75-Bipolar I d/o, current or most recent episode depressed F41.1 ? Generalized anxiety d/o
[2021-01-24 15:41] LABS: Ethanol < 10 mg/dL
[2021-01-24 15:46] LABS: Acetaminophen LAB < 1 mcg/mL (<30); Alanine Aminotransferase 42 U/L (0-31); Albumin Level 4.1 g/dL (3.5-5.0); Alkaline Phosphatase 73 U/L (39-117); Anion Gap 11 (12-20); Aspartate Amino Transferase 39 U/L (5-31); Bilirubin Total 0.4 mg/dL (0.0-1.0); Blood Urea Nitrogen 13 mg/dL (9-16); Calcium 9.9 mg/dL (8.4-10.2); Carbon Dioxide 27 mmol/L (22-29); Chloride 106 mmol/L (96-108); Creatinine Clr Calc Pharmacy 51.3; Estimated Glomerular Filt Rate 44; Glucose Random 118 mg/dL (60-115); Lipase 25 U/L (8-78); Potassium 4.2 mmol/L (3.3-5.1); Salicylate < 5.0 mg/dL (15-30); Sodium 140 mmol/L (135-145); Total Protein 8.3 g/dL (6.5-8.0)
[2021-01-24 16:51] LABS: Appearance Urine CLEAR; Color Urine DK YELLOW; Glucose Urine UA NEG (NEG); Leukocyte Esterase Urine NEG (NEG); Nitrite Urine NEG (NEG); Specific Gravity - Urine 1.025 (1.005-1.025); Urine Blood NEG (NEG); Urine Ketones NEG (NEG); Urine Protein NEG (NEG-TRACE)
[2021-01-24 17:10] LABS: Amphetamine Screen Urine Not Detected (Not Detect); Barbiturates, Urine Not Detected (Not Detect); Benzodiazepines Screen Urine Not Detected (Not Detect); Cannabinoid Screen Urine Not Detected (Not Detect); Cocaine Screen Urine Not Detected (Not Detect); Fentanyl, urine Not Detected (Not Detect); Opiate Screen Urine Not Detected (Not Detect); Phencyclidine Screen Urine Not Detected (Not Detect)
[2021-01-24 17:30] LABS: TSH reflex Free T4 1.85 uIU/mL (0.32-4.0)
[2021-01-24 18:00] VITALS: BP 118/74; PULSE 78; RESP 16; TEMP 36.1; O2SAT 100
[2021-01-24] MEDS: Atorvastatin Calcium 20 MG TABLET PO (21:32)
[2021-01-24] MEDS: Zolpidem Tartrate 5 MG TABLET PO (21:32)
--- NOTE | 2021-01-24 23:10 | PC.ADMIT ---
60 yo female admitted to [facility] at 1820 on a CV for psychiatric evaluation. Pt stated that she was talking with a friend and the friend stated she did not sound right to her so she called the police to do a check on her. When police arrived, observed that she was talking slowly and slurring her words, disoriented. Pt states she has no memory of the event. Pt states that she was brought to [place] ([facility] in [place] where she stayed for 2.5 weeks. Pt states that she was doing PT & OT there Pt stated that she believed the staff were talking about her and tended to isolate in her room. She did not appear to be certain if these were actual events or dreams, paranoia, etc. Upon her d/c, pt was brought to [facility] ER per Dr. Iqbal's request for psych evaluation. Pt is A&O, 5/10 anxiety, denies depression. Pt seemed to be forgetful at times losing track of the conversation. Pt has flights of ideas and is tangential when speaking and has disorganized thinking patterns. Pt denies SI, HI and AVH at this time. Pt denies ETOH and substance abuse/use.Pt MHx is limited to knee pain in right knee, and uses a walker for that reason. Pt psych dx is Bipolar Disorder, Generalized anxiety disorder and has a hx of suicide attempts since 15 yrs of age. Pt worried about her memory status and hopes to get assessment and help with that here. Pt received an MRI tonight. Orders obtained. Pt is on 15 minute safety checks.
[2021-01-25] MEDS: Levothyroxine Sodium 100 MCG TABLET PO (05:42)
[2021-01-25] MEDS: Omeprazole 20 MG CAPSULE.DR PO (05:42)
[2021-01-25 05:46] VITALS: BP 138/83; PULSE 85; RESP 18; TEMP 36.2; O2SAT 99
[2021-01-25 07:00] VITALS: BMI 39.3
[2021-01-25] MEDS: Vortioxetine Hydrobromide 20 MG TABLET PO (09:05)
[2021-01-25] MEDS: Cariprazine HCl 3 MG CAPSULE PO (09:05)
[2021-01-25] MEDS: buPROPion HCl XL 150 MG TAB.ER.24H PO (09:06)
[2021-01-25] MEDS: Lithium Carbonate ER 450 MG TABLET.ER PO (09:06)
[2021-01-25] MEDS: Acetaminophen 325 MG TABLET 650 MG PO (14:28)
--- NOTE | 2021-01-25 14:59 | P.HPPS_ITS ---
HPI Date of Service: 01/25/21 Chief Complaint: Depression Sources of Information: patient interviewed and chart reviewed Additional Sources of Information: sister [facility] rehab ctr HPI Subjective Notes: [place] Warning and Conditional Voluntary Healthcare Proxy: No Guardianship: No Medical Problems Affecting Mental Status: Yes Narrative: The patient is a 60-year-old single female living alone long history bipolar disorder, generalized anxiety and history of recurrent depression with past suicide attempts. The patient has gradually over number of years taking a downhill course missing multiple appointments with her physicians not following through on opportunities to leave the house and mostly has been spending most of her time at home often with her refer sleep cycle. Patient the past had been able to work on a regular basis but has not followed through generally in a number of years and has become increasingly isolative. Most recently she has been on Vraylar up to 3 mg daily Trintellix 20 mg daily Wellbutrin 100 50 mg daily lithium 450 mg at bedtime patient had been discontinued from Depakote. She does have Ambien 5 mg at bedtime as needed for sleep. Patient is unable to give a clear history but the patient over the last few weeks ago onto the emergency room on 2 occasions and appears to have stopped her psychiatric medication and may have been reporting them. She does not have clear memory about this but that she was brought to the emergency room secondary to multiple falls and confusion. She was medically screened at [facility] eventually 5 referred to rehab secondary to deconditioning and multiple falls. Patient is not using a walker she does have significant knee problems and an MRI completed in the emergency room showed atrophy but no evidence for CVA. delirium paranoia status post multiple falls confusional state unclear etiology Past Psychiatric History: Long history of bipolar disorder characterized by a hypomanic episodes not psychotic and much longer periods of quite significant depression. Patient has become increasingly isolated over the years with significant financial stress and burden feeling overwhelmed taking care of a house by herself that needs extensive repairs Patient does have a history of serious overdose attempts in psychiatric hospitalization in the past she has to go to the [facility]. Medical Evaluation Reviewed: Yes REPLACED BY [facility] Medical History (Updated 01/25/21 @ 17:18 by Ramin Iqbal MD) Generalized anxiety disorder Knee pain Morbid obesity Post-menopausal Screening for breast cancer Screening for colon cancer Suicide attempt by drug ingestion Surgical History No pertinent past surgical history Family History: Has a sister with MS Social History: Patient is single living in her family home of origin by herself. Patient is financially strapped house needs extensive repairs she has been quite isolative and not taking care of herself. She does have a sister with MS with whom she is close and also a brother Substance History: none Trauma History: none known Diagnostics Vital Signs (24Hr): Vital Signs - 24 hr 01/24/21 18:00 01/25/21 05:46 Temperature 96.9 F 97.2 F Pulse Rate 78 85 Respiratory Rate 16 18 Blood Pressure 118/74 138/83 Pulse Oximetry 100 99 BMI result Body Mass Index 39.3 Labs Results: 01/24/21 15:20 01/24/21 15:20 Labs: Laboratory Results - last 48 hr 01/24/21 01/24/21 01/24/21 14:46 15:20 15:20 WBC 9.5 RBC 4.56 Hgb 13.5 Hct 43.7 MCV 95.8 MCH 29.6 MCHC 30.9 L RDW 15.0 Plt Count 285 MPV 10.5 Immature Gran % (Auto) 0.3 Neut % (Auto) 57.7 Lymph % (Auto) 31.2 [place] % (Auto) 7.0 Eos % (Auto) 3.2 Baso % (Auto) 0.6 Lymph # (Auto) 3.0 [place] # (Auto) 0.7 Eos # (Auto) 0.3 Baso # (Auto) 0.1 Abs Immat Gran (auto) 0.03 Absolute Neuts (auto) 5.5 Absolute Nucleated RBC 0.000 Nucleated RBC % (auto) 0.0 Sodium 140 Potassium 4.2 D Chloride 106 Carbon Dioxide 27 Anion Gap 11 L BUN 13 Creatinine 1.23 Estim Creat Clear Calc 51.3 Estimated GFR 44 Random Glucose 118 H Calcium 9.9 Total Bilirubin 0.4 AST 39 H D ALT 42 H Alkaline Phosphatase 73 Total Protein 8.3 H Albumin 4.1 Lipase 25 TSH 1.85 Urine Color Urine Appearance Urine pH Ur Specific [place] Urine Protein Urine Glucose (UA) Urine Ketones Urine Blood Urine Nitrite Ur Leukocyte Esterase Salicylates < 5.0 L Urine Opiates Screen Urine Fentanyl Screen Acetaminophen < 1 Ur Barbiturates Screen Ur Phencyclidine Scrn Ur Amphetamines Screen U Benzodiazepines Scrn [place] Urine Cocaine Screen U Marijuana (THC) Screen Ethyl Alcohol COVID-19 ([facility]) Negative COVID-19 Clin Com See Note 01/24/21 01/24/21 01/24/21 15:20 15:20 16:29 WBC RBC Hgb Hct MCV MCH MCHC RDW Plt Count MPV Immature Gran % (Auto) Neut % (Auto) Lymph % (Auto) [place] % (Auto) Eos % (Auto) Baso % (Auto) Lymph # (Auto) [place] # (Auto) Eos # (Auto) Baso # (Auto) Abs Immat Gran (auto) Absolute Neuts (auto) Absolute Nucleated RBC Nucleated RBC % (auto) Sodium Potassium Chloride Carbon Dioxide Anion Gap BUN Creatinine Estim Creat Clear Calc Estimated GFR Random Glucose Calcium Total Bilirubin AST ALT Alkaline Phosphatase Total Protein Albumin Lipase TSH Urine Color Urine Appearance Urine pH Ur Specific [place] Urine Protein Urine Glucose (UA) Urine Ketones Urine Blood Urine Nitrite Ur Leukocyte Esterase Salicylates Urine Opiates Screen Not Detected Urine Fentanyl Screen Not Detected Acetaminophen Ur Barbiturates Screen Not Detected Ur Phencyclidine Scrn Not Detected Ur Amphetamines Screen Not Detected U Benzodiazepines Scrn Not Detected [place] 0.36 L Urine Cocaine Screen Not Detected U Marijuana (THC) Screen Not Detected Ethyl Alcohol < 10 COVID-19 ([facility]) COVID-19 [facility] Com 01/24/21 16:29 WBC RBC Hgb Hct MCV MCH MCHC RDW Plt Count MPV Immature Gran % (Auto) Neut % (Auto) Lymph % (Auto) [place] % (Auto) Eos % (Auto) Baso % (Auto) Lymph # (Auto) [place] # (Auto) Eos # (Auto) Baso # (Auto) Abs Immat Gran (auto) Absolute Neuts (auto) Absolute Nucleated RBC Nucleated RBC % (auto) Sodium Potassium Chloride Carbon Dioxide Anion Gap BUN Creatinine Estim Creat Clear Calc Estimated GFR Random Glucose Calcium Total Bilirubin AST ALT Alkaline Phosphatase Total Protein Albumin Lipase TSH Urine Color DK YELLOW Urine Appearance CLEAR Urine pH 6.0 Ur Specific [place] 1.025 Urine Protein NEG Urine Glucose (UA) NEG Urine Ketones NEG Urine Blood NEG Urine Nitrite NEG Ur Leukocyte Esterase NEG Salicylates Urine Opiates Screen Urine Fentanyl Screen Acetaminophen Ur Barbiturates Screen Ur Phencyclidine Scrn Ur Amphetamines Screen U Benzodiazepines Scrn [place] Urine Cocaine Screen U Marijuana (THC) Screen Ethyl Alcohol COVID-19 ([facility]) COVID-19 Clin Com Imaging Radiology Impressions: ITS Impressions Brain MRI 01/24/21 20:15 IMPRESSION: 1. No acute intracranial abnormalities. 2. Mild underlying microangiopathy and generalized cerebral volume loss. Meds/Allergies Meds Home Medications Acetaminophen (Acetaminophen 325 Mg Tablet) 650 mg PO Q6H PRN PRN Reason: Pain, Moderate (Pain Scale 4-6 Last Admin: 01/25/21 14:28 Dose: 650 mg Documented by: Atorvastatin Calcium (Atorvastatin Calcium 20 Mg Tablet) 20 mg PO BEDTIME [facility] Last Admin: 01/24/21 21:32 Dose: 20 mg Documented by: Bupropion HCl (Bupropion Hcl Xl 150 Mg Tab.Er.24h) 150 mg PO DAILY [facility] Last Admin: 01/25/21 09:06 Dose: 150 mg Documented by: Cariprazine (Cariprazine Hcl 1.5 Mg Capsule) 1.5 mg PO DAILY [facility] Levothyroxine Sodium (Levothyroxine Sodium 100 Mcg Tablet) 100 mcg PO DAILY@0600 [facility] Last Admin: 01/25/21 05:42 Dose: 100 mcg Documented by: [place] Carbonate ([place] Carbonate Er 450 Mg Tablet.Er) 450 mg PO DAILY [facility] Last Admin: 01/25/21 09:06 Dose: 450 mg Documented by: Omeprazole (Omeprazole 20 Mg Capsule.Dr) 20 mg PO DAILY@0630 [facility] Last Admin: 01/25/21 05:42 Dose: 20 mg Documented by: Ondansetron HCl (Ondansetron Odt 4 Mg Tab.Rapdis) 4 mg TRANSLINGU Q8H PRN PRN Reason: nausea and vomiting Vortioxetine (Vortioxetine Hydrobromide 20 Mg Tablet) 20 mg PO DAILY [facility] Last Admin: 01/25/21 09:05 Dose: 20 mg Documented by: Zolpidem Tartrate (Zolpidem Tartrate 5 Mg Tablet) 5 mg PO BEDTIME [facility] Last Admin: 01/24/21 21:32 Dose: 5 mg Documented by: Allergies Allergies Allergy/AdvReac Type Severity Reaction Status Date / Time No Known Allergies Allergy Verified 11/24/20 10:29 Mental Status Exam Mental Status Exam Narrative: Patient is a somewhat overweight female she has a walker she is casually dressed reasonably groomed. Patient is cooperative to the interview. Some degree of superficial brightness. Mood is somewhat anxious at times expansive she is alert knows the year month place reason she is here. Patient does state that she had often stop taking her morning pills and may have been stockpiling pills. She reports periods at the rehab center where she felt people were talking about her insight conspiring against her. No clear hallucinations sensorium seems clear at this time impulse control intact in this setting feels quite fearful that she might have harmed herself if she were back home. Insight judgment impaired present impulse control seems intact she is walking with the aid of a walker Assessment & Plan Assessment & Plan (1) Bipolar disorder with severe depression: Status: Acute Code(s): F31.4 - Bipolar disorder, current episode depressed, severe, without psychotic features (2) Generalized anxiety disorder: Status: Acute Code(s): F41.1 - Generalized anxiety disorder (3) Parkinsonian syndrome: Status: Acute Code(s): G20 - Parkinson's disease (4) Suicide attempt by drug ingestion: Status: Acute Code(s): T50.902A - Poisoning by unspecified drugs, medicaments and biological substances, intentional self-harm, initial encounter Assessment and Plan: Patient appears to be status post drug overdose after stockpiling morning meds for. Of time. This appear to have caused a delirium and balance problems. [place] levels from [address] [place] [address] rehab setting and [facility] were in the 1.01.2 range unclear what the patient may have been in the community. Has parkinsonian symptoms will lower Vryalar to 1.5 mg start Mirapex for depression and parkinsonian symptoms check labs EKG head of the MRI shows volume loss microvascular problems but no evidence of CVA Continue lithium Vryalar Wellbutrin Trintellix at present. Re-evaluate patient's ability to live at home alone. Will look at discharge alternatives and is currently accepting helpful try to get family involvement. Patient does have a history of quite significant suicide attempts in the past. She has seen Dr. nithya Foote in the past. Depakote had been discontinued over the past year Patient educated on: diagnosis, medication risk/benefits, therapeutic strategies and medical condition Informed Consent: understands Reason for continued inpatient stay Substantial Risk for: harm to self, inability to function and med/psych decompensation
[2021-01-25 18:00] VITALS: BP 105/66; PULSE 80; RESP 16; TEMP 36.2; O2SAT 98
[2021-01-25] MEDS: Atorvastatin Calcium 20 MG TABLET PO (21:58)
[2021-01-25] MEDS: Zolpidem Tartrate 5 MG TABLET PO (21:58)
[2021-01-26] MEDS: Levothyroxine Sodium 100 MCG TABLET PO (05:33)
[2021-01-26] MEDS: Omeprazole 20 MG CAPSULE.DR PO (05:33)
[2021-01-26 06:00] VITALS: BP 125/67; PULSE 76; RESP 16; TEMP 36.2; O2SAT 97
[2021-01-26] MEDS: Lithium Carbonate ER 450 MG TABLET.ER PO (09:00)
[2021-01-26] MEDS: Cariprazine HCl 1.5 MG CAPSULE PO (09:00)
[2021-01-26] MEDS: buPROPion HCl XL 150 MG TAB.ER.24H PO (09:00)
[2021-01-26] MEDS: Vortioxetine Hydrobromide 20 MG TABLET PO (09:00)
--- NOTE | 2021-01-26 16:41 | HO.PSYCHPN ---
Subjective Subjective Date of Service: 01/26/21 Reason For Visit: Depression Subjective Notes: [place] Warning and Conditional Voluntary Healthcare Proxy: No Guardianship: No Interim History: PTB DEPRESSED WITHDRAWN INITIALLY OK TRYING BTO PROCXESS OVERDOSE ATTEMPTS AND CONSEQUENCES Medication Compliance: Yes Attending Groups: Intermittent Mental Status Exam Mental Status Exam Narrative: Patient is a somewhat overweight female she has a walker she is casually dressed reasonably groomed. Patient is cooperative to the interview. Some degree of superficial brightness. Mood is somewhat anxious at times expansive she is alert knows the year month place reason she is here. Patient does state that she had often stop taking her morning pills and may have been stockpiling pills. She reports periods at the rehab center where she felt people were talking about her insight conspiring against her. No clear hallucinations sensorium seems clear at this time impulse control intact in this setting feels quite fearful that she might have harmed herself if she were back home. Insight judgment impaired present impulse control seems intact she is walking with the aid of a walker Diagnostics Vital Signs (24Hr): Vital Signs - 24 hr 01/25/21 18:00 01/26/21 06:00 Temperature 97.1 F 97.2 F Pulse Rate 80 76 Respiratory Rate 16 16 Blood Pressure 105/66 125/67 Pulse Oximetry 98 97 BMI result Body Mass Index 39.3 Labs Results: 01/24/21 15:20 01/24/21 15:20 Labs: Laboratory Results - last 48 hr 01/24/21 01/24/21 01/24/21 15:20 16:29 16:29 TSH 1.85 Urine Color DK YELLOW Urine Appearance CLEAR Urine pH 6.0 Ur Specific [place] 1.025 Urine Protein NEG Urine Glucose (UA) NEG Urine Ketones NEG Urine Blood NEG Urine Nitrite NEG Ur Leukocyte Esterase NEG Urine Opiates Screen Not Detected Urine Fentanyl Screen Not Detected Ur Barbiturates Screen Not Detected Ur Phencyclidine Scrn Not Detected Ur Amphetamines Screen Not Detected U Benzodiazepines Scrn Not Detected Urine Cocaine Screen Not Detected U Marijuana (THC) Screen Not Detected Imaging Radiology Impressions: ITS Impressions Brain MRI 01/24/21 20:15 IMPRESSION: 1. No acute intracranial abnormalities. 2. Mild underlying microangiopathy and generalized cerebral volume loss. Medications Medications Current Medications Acetaminophen (Acetaminophen 325 Mg Tablet) 650 mg PO Q6H PRN PRN Reason: Pain, Moderate (Pain Scale 4-6 Last Admin: 01/25/21 14:28 Dose: 650 mg Documented by: Atorvastatin Calcium (Atorvastatin Calcium 20 Mg Tablet) 20 mg PO BEDTIME [facility] Last Admin: 01/25/21 21:58 Dose: 20 mg Documented by: Bupropion HCl (Bupropion Hcl Xl 150 Mg Tab.Er.24h) 150 mg PO DAILY [facility] Last Admin: 01/26/21 09:00 Dose: 150 mg Documented by: Cariprazine (Cariprazine Hcl 1.5 Mg Capsule) 1.5 mg PO DAILY [facility] Last Admin: 01/26/21 09:00 Dose: 1.5 mg Documented by: Levothyroxine Sodium (Levothyroxine Sodium 100 Mcg Tablet) 100 mcg PO DAILY@0600 [facility] Last Admin: 01/26/21 05:33 Dose: 100 mcg Documented by: [place] Carbonate ([place] Carbonate Er 450 Mg Tablet.Er) 450 mg PO DAILY [facility] Last Admin: 01/26/21 09:00 Dose: 450 mg Documented by: Omeprazole (Omeprazole 20 Mg Capsule.Dr) 20 mg PO DAILY@0630 [facility] Last Admin: 01/26/21 05:33 Dose: 20 mg Documented by: Ondansetron HCl (Ondansetron Odt 4 Mg Tab.Rapdis) 4 mg TRANSLINGU Q8H PRN PRN Reason: nausea and vomiting Vortioxetine (Vortioxetine Hydrobromide 20 Mg Tablet) 20 mg PO DAILY [facility] Last Admin: 01/26/21 09:00 Dose: 20 mg Documented by: Zolpidem Tartrate (Zolpidem Tartrate 5 Mg Tablet) 5 mg PO BEDTIME [facility] Last Admin: 01/25/21 21:58 Dose: 5 mg Documented by: Allergies Allergies Allergy/AdvReac Type Severity Reaction Status Date / Time No Known Allergies Allergy Verified 11/24/20 10:29 Assessment & Plan Assessment & Plan (1) Bipolar disorder with severe depression: Status: Acute Code(s): F31.4 - Bipolar disorder, current episode depressed, severe, without psychotic features (2) Generalized anxiety disorder: Status: Acute Code(s): F41.1 - Generalized anxiety disorder (3) Parkinsonian syndrome: Status: Acute Code(s): G20 - Parkinson's disease (4) Suicide attempt by drug ingestion: Status: Acute Code(s): T50.902A - Poisoning by unspecified drugs, medicaments and biological substances, intentional self-harm, initial encounter Assessment and Plan: Patient appears to be status post drug overdose after stockpiling morning meds for. Of time. This appear to have caused a delirium and balance problems. [place] levels from [address] [place] [address] setting and [facility] were in the 1.01.2 range unclear what the patient may have been in the community. Has parkinsonian symptoms will lower Vryalar to 1.5 mg start Mirapex for depression and parkinsonian symptoms check labs EKG head of the MRI shows volume loss microvascular problems but no evidence of CVA Continue lithium Vryalar Wellbutrin Trintellix at present. Re-evaluate patient's ability to live at home alone. Will look at discharge alternatives and is currently accepting helpful try to get family involvement. Patient does have a history of quite significant suicide attempts in the past. She has seen Dr. nithya Foote in the past. Depakote had been discontinued over the past year I spent minutes with the patient and/or on the patient floor today, greater than?50% of which was spent counseling/coordinating care. Reason for contiued inpatient stay Substantial Risk for: harm to self, rapid decompensation and med/psych decompensation
[2021-01-26 19:30] VITALS: BP 129/55; PULSE 86; TEMP 36.6
[2021-01-26] MEDS: Zolpidem Tartrate 5 MG TABLET PO (21:21)
[2021-01-26] MEDS: Atorvastatin Calcium 20 MG TABLET PO (21:21)
[2021-01-27] MEDS: Omeprazole 20 MG CAPSULE.DR PO (05:51)
[2021-01-27] MEDS: Levothyroxine Sodium 100 MCG TABLET PO (05:51)
[2021-01-27 06:00] VITALS: BP 116/65; PULSE 78; RESP 16; TEMP 36.7; O2SAT 98
--- NOTE | 2021-01-27 06:12 | HO.PSYCHPN ---
Subjective Subjective Date of Service: 01/27/21 Reason For Visit: Depression Interim History: Improving mood. Denies VH. More steady on feet . Uses walker. Labs noted Review of Systems Review of Systems Yes all other systems are reviewed and are negative Reports confusion Psychiatric: Reports abnormal sleep pattern, Reports anxiety, Reports confusion, Reports depression, Reports irritability, Reports mood swings and Reports paranoia Mental Status Exam Mental Status Exam Narrative: Patient is a somewhat overweight female she has a walker she is casually dressed reasonably groomed. Patient is cooperative to the interview. Some degree of superficial brightness. Mood is somewhat anxious at times expansive she is alert knows the year month place reason she is here. Patient does state that she had often stop taking her morning pills and may have been stockpiling pills. She reports periods at the rehab center where she felt people were talking about her insight conspiring against her. No clear hallucinations sensorium seems clear at this time impulse control intact in this setting feels quite fearful that she might have harmed herself if she were back home. Insight judgment impaired present impulse control seems intact she is walking with the aid of a walker Diagnostics Vital Signs (24Hr): Vital Signs - 24 hr 01/26/21 19:30 01/27/21 06:00 Temperature 97.9 F 98.1 F Pulse Rate 86 78 Respiratory Rate 16 Blood Pressure 129/55 L 116/65 Pulse Oximetry 98 BMI result Body Mass Index 39.3 Labs Results: 01/24/21 15:20 01/24/21 15:20 Imaging Radiology Impressions: ITS Impressions Brain MRI 01/24/21 20:15 IMPRESSION: 1. No acute intracranial abnormalities. 2. Mild underlying microangiopathy and generalized cerebral volume loss. Medications Medications Current Medications Acetaminophen (Acetaminophen 325 Mg Tablet) 650 mg PO Q6H PRN PRN Reason: Pain, Moderate (Pain Scale 4-6 Last Admin: 01/25/21 14:28 Dose: 650 mg Documented by: Atorvastatin Calcium (Atorvastatin Calcium 20 Mg Tablet) 20 mg PO BEDTIME [facility] Last Admin: 01/26/21 21:21 Dose: 20 mg Documented by: Bupropion HCl (Bupropion Hcl Xl 150 Mg Tab.Er.24h) 150 mg PO DAILY [facility] Last Admin: 01/26/21 09:00 Dose: 150 mg Documented by: Cariprazine (Cariprazine Hcl 1.5 Mg Capsule) 1.5 mg PO DAILY [facility] Last Admin: 01/26/21 09:00 Dose: 1.5 mg Documented by: Levothyroxine Sodium (Levothyroxine Sodium 100 Mcg Tablet) 100 mcg PO DAILY@0600 [facility] Last Admin: 01/27/21 05:51 Dose: 100 mcg Documented by: [place] Carbonate ([place] Carbonate Er 450 Mg Tablet.Er) 450 mg PO DAILY [facility] Last Admin: 01/26/21 09:00 Dose: 450 mg Documented by: Omeprazole (Omeprazole 20 Mg Capsule.Dr) 20 mg PO DAILY@0630 [facility] Last Admin: 01/27/21 05:51 Dose: 20 mg Documented by: Ondansetron HCl (Ondansetron Odt 4 Mg Tab.Rapdis) 4 mg TRANSLINGU Q8H PRN PRN Reason: nausea and vomiting Vortioxetine (Vortioxetine Hydrobromide 20 Mg Tablet) 20 mg PO DAILY [facility] Last Admin: 01/26/21 09:00 Dose: 20 mg Documented by: Zolpidem Tartrate (Zolpidem Tartrate 5 Mg Tablet) 5 mg PO BEDTIME [facility] Last Admin: 01/26/21 21:21 Dose: 5 mg Documented by: Allergies Allergies Allergy/AdvReac Type Severity Reaction Status Date / Time No Known Allergies Allergy Verified 11/24/20 10:29 Assessment & Plan Assessment & Plan (1) Bipolar disorder with severe depression: Status: Acute Code(s): F31.4 - Bipolar disorder, current episode depressed, severe, without psychotic features (2) Generalized anxiety disorder: Status: Acute Code(s): F41.1 - Generalized anxiety disorder (3) Parkinsonian syndrome: Status: Acute Code(s): G20 - Parkinson's disease (4) Suicide attempt by drug ingestion: Status: Acute Code(s): T50.902A - Poisoning by unspecified drugs, medicaments and biological substances, intentional self-harm, initial encounter Assessment and Plan: Patient appears to be status post drug overdose after stockpiling morning meds for. Of time. This appear to have caused a delirium and balance problems. [place] levels from [address] [place] [address] rehab setting and [facility] were in the 1.01.2 range unclear what the patient may have been in the community. Has parkinsonian symptoms will lower Vryalar to 1.5 mg start Mirapex for depression and parkinsonian symptoms check labs EKG head of the MRI shows volume loss microvascular problems but no evidence of CVA Continue lithium Vryalar Wellbutrin Trintellix at present. Re-evaluate patient's ability to live at home alone. Will look at discharge alternatives and is currently accepting helpful try to get family involvement. Patient does have a history of quite significant suicide attempts in the past. She has seen Dr. nithya Foote in the past. Depakote had been discontinued over the past year I spent minutes with the patient and/or on the patient floor today, greater than?50% of which was spent counseling/coordinating care. Reason for contiued inpatient stay Substantial Risk for: inability to function, rapid decompensation and med/psych decompensation
[2021-01-27] MEDS: Lithium Carbonate ER 450 MG TABLET.ER PO (08:58)
[2021-01-27] MEDS: Cariprazine HCl 1.5 MG CAPSULE PO (08:58)
[2021-01-27] MEDS: Vortioxetine Hydrobromide 20 MG TABLET PO (08:58)
[2021-01-27] MEDS: buPROPion HCl XL 150 MG TAB.ER.24H PO (08:58)
[2021-01-27 16:44] VITALS: BP 123/59; PULSE 73; RESP 16; TEMP 36.7; O2SAT 98
[2021-01-27] MEDS: Atorvastatin Calcium 20 MG TABLET PO (21:34)
[2021-01-27] MEDS: Zolpidem Tartrate 5 MG TABLET PO (21:34)
[2021-01-28 06:00] VITALS: BP 134/75; PULSE 68; RESP 18; TEMP 36.1; O2SAT 99
[2021-01-28] MEDS: Omeprazole 20 MG CAPSULE.DR PO (06:38)
[2021-01-28] MEDS: Levothyroxine Sodium 100 MCG TABLET PO (06:38)
[2021-01-28] MEDS: Cariprazine HCl 1.5 MG CAPSULE PO (08:56)
[2021-01-28] MEDS: buPROPion HCl XL 150 MG TAB.ER.24H PO (08:56)
[2021-01-28] MEDS: Lithium Carbonate ER 450 MG TABLET.ER PO (08:56)
[2021-01-28] MEDS: Vortioxetine Hydrobromide 20 MG TABLET PO (08:57)
--- NOTE | 2021-01-28 15:03 | P.PNPSI_ITS ---
Subjective Subjective Date of Service: 01/28/21 Reason For Visit: Depression Subjective Notes: Conditional Voluntary Interim History: 01/27/21:Improving mood. Denies VH. More steady on feet . Uses walker. Labs noted 01/28/21: Mood brighter. Hopeful. Ambulating better. No VH. Review of Systems Review of Systems Yes all other systems are reviewed and are negative Reports confusion Psychiatric: Reports abnormal sleep pattern, Reports anxiety, Reports confusion, Reports depression, Reports irritability, Reports mood swings and Reports paranoia Mental Status Exam Mental Status Exam Narrative: Patient is a somewhat overweight female she has a walker she is casually dressed reasonably groomed. Patient is cooperative to the interview. Some degree of superficial brightness. Mood is somewhat anxious at times expansive she is alert knows the year month place reason she is here. Patient does state that she had often stop taking her morning pills and may have been stockpiling pills. She reports periods at the rehab center where she felt people were talking about her insight conspiring against her. No clear hallucinations sensorium seems clear at this time impulse control intact in this setting feels quite fearful that she might have harmed herself if she were back home. Insight judgment impaired present impulse control seems intact she is walking with the aid of a walker Diagnostics Vital Signs (24Hr): Vital Signs - 24 hr 01/27/21 16:44 01/28/21 06:00 Temperature 98.0 F 97.0 F Pulse Rate 73 68 Respiratory Rate 16 18 Blood Pressure 123/59 L 134/75 Pulse Oximetry 98 99 BMI result Body Mass Index 39.3 Labs Results: 01/24/21 15:20 01/24/21 15:20 Imaging Radiology Impressions: ITS Impressions Brain MRI 01/24/21 20:15 IMPRESSION: 1. No acute intracranial abnormalities. 2. Mild underlying microangiopathy and generalized cerebral volume loss. Medications Medications Current Medications Acetaminophen (Acetaminophen 325 Mg Tablet) 650 mg PO Q6H PRN PRN Reason: Pain, Moderate (Pain Scale 4-6 Last Admin: 01/25/21 14:28 Dose: 650 mg Documented by: Atorvastatin Calcium (Atorvastatin Calcium 20 Mg Tablet) 20 mg PO BEDTIME [facility] Last Admin: 01/27/21 21:34 Dose: 20 mg Documented by: Bupropion HCl (Bupropion Hcl Xl 150 Mg Tab.Er.24h) 150 mg PO DAILY [facility] Last Admin: 01/28/21 08:56 Dose: 150 mg Documented by: Cariprazine (Cariprazine Hcl 1.5 Mg Capsule) 1.5 mg PO DAILY [facility] Last Admin: 01/28/21 08:56 Dose: 1.5 mg Documented by: Levothyroxine Sodium (Levothyroxine Sodium 100 Mcg Tablet) 100 mcg PO DAILY@0600 [facility] Last Admin: 01/28/21 06:38 Dose: 100 mcg Documented by: [place] Carbonate ([place] Carbonate Er 450 Mg Tablet.Er) 450 mg PO DAILY [facility] Last Admin: 01/28/21 08:56 Dose: 450 mg Documented by: Omeprazole (Omeprazole 20 Mg Capsule.Dr) 20 mg PO DAILY@0630 [facility] Last Admin: 01/28/21 06:38 Dose: 20 mg Documented by: Ondansetron HCl (Ondansetron Odt 4 Mg Tab.Rapdis) 4 mg TRANSLINGU Q8H PRN PRN Reason: nausea and vomiting Vortioxetine (Vortioxetine Hydrobromide 20 Mg Tablet) 20 mg PO DAILY [facility] Last Admin: 01/28/21 08:57 Dose: 20 mg Documented by: Zolpidem Tartrate (Zolpidem Tartrate 5 Mg Tablet) 5 mg PO BEDTIME [facility] Last Admin: 01/27/21 21:34 Dose: 5 mg Documented by: Allergies Allergies Allergy/AdvReac Type Severity Reaction Status Date / Time No Known Allergies Allergy Verified 11/24/20 10:29 Assessment & Plan Assessment & Plan (1) Bipolar disorder with severe depression: Status: Acute Code(s): F31.4 - Bipolar disorder, current episode depressed, severe, without psychotic features (2) Generalized anxiety disorder: Status: Acute Code(s): F41.1 - Generalized anxiety disorder (3) Parkinsonian syndrome: Status: Acute Code(s): G20 - Parkinson's disease (4) Suicide attempt by drug ingestion: Status: Acute Code(s): T50.902A - Poisoning by unspecified drugs, medicaments and biological substances, intentional self-harm, initial encounter Assessment and Plan: Patient appears to be status post drug overdose after stockpiling morning meds for. Of time. This appear to have caused a delirium and balance problems. [place] levels from [address] [place] [address] and [facility] were in the 1.01.2 range unclear what the patient may have been in the community. Has parkinsonian symptoms will lower Vryalar to 1.5 mg start Mirapex for depression and parkinsonian symptoms check labs EKG head of the MRI shows volume loss microvasc ular problems but no evidence of CVA Continue lithium Vryalar Wellbutrin Trintellix at present. Re-evaluate patient's ability to live at home alone. Will look at discharge alternatives and is currently accepting helpful try to get family involvement. Patient does have a history of quite significant suicide attempts in the past. She has seen Dr. nithya Foote in the past. Depakote had been discontinued over the past year I spent minutes with the patient and/or on the patient floor today, greater than?50% of which was spent counseling/coordinating care. Reason for contiued inpatient stay Substantial Risk for: med/psych decompensation
[2021-01-28 17:44] VITALS: BP 111/52; PULSE 73; RESP 18; TEMP 36.4; O2SAT 73
[2021-01-28] MEDS: Zolpidem Tartrate 5 MG TABLET PO (21:06)
[2021-01-28] MEDS: Atorvastatin Calcium 20 MG TABLET PO (21:06)
--- NOTE | 2021-01-29 | EEG_ITS ---
This is a 16-channel EEG with an EKG lead. The patient is reported awake during the tracing. Background EEG rhythm is 8 to 10 hertz, 5 to 30 microvolt posteriorly, lower amplitude fast anteriorly. Photic stimulation does not produce any significant abnormality. Hyperventilation is not performed. Cardiac lead does not reveal any significant abnormality. No definite sharp wave spikes or paroxysmal tendency noted. IMPRESSION: Unremarkable EEG. MD PHUC Bautista/GELY / [phone]
[2021-01-29 06:00] VITALS: BP 144/63; PULSE 71; RESP 16; TEMP 36.1; O2SAT 100
[2021-01-29] MEDS: Levothyroxine Sodium 100 MCG TABLET PO (07:04)
[2021-01-29] MEDS: Omeprazole 20 MG CAPSULE.DR PO (07:04)
[2021-01-29] MEDS: Cariprazine HCl 1.5 MG CAPSULE PO (08:32)
[2021-01-29] MEDS: buPROPion HCl XL 150 MG TAB.ER.24H PO (08:32)
[2021-01-29] MEDS: Lithium Carbonate ER 450 MG TABLET.ER PO (08:32)
[2021-01-29] MEDS: Vortioxetine Hydrobromide 20 MG TABLET PO (08:32)
--- NOTE | 2021-01-29 17:25 | P.PNPSI_ITS ---
Subjective Subjective Date of Service: 01/29/21 Reason For Visit: Depression Subjective Notes: Conditional Voluntary Interim History: The patient has been ruminating more concerned about what had happened in the rehab setting trying to integrate information that was distorted when she was apparently and delirium Medication Compliance: Yes Mental Status Exam Mental Status Exam Narrative: Patient is a somewhat overweight female she has a walker she is casually dressed reasonably groomed. Patient is cooperative to the interview. Some degree of superficial brightness. Mood is somewhat anxious at times expansive she is alert knows the year month place reason she is here. Patient does state that she had often stop taking her morning pills and may have been stockpiling pills. She reports periods at the rehab center where she felt people were talking about her insight conspiring against her. No clear hallucinations sensorium seems clear at this time impulse control intact in this setting feels quite fearful that she might have harmed herself if she were back home. Insight judgment impaired present impulse control seems intact she is walking with the aid of a walker Diagnostics Vital Signs (24Hr): Vital Signs - 24 hr 01/28/21 17:44 01/29/21 06:00 Temperature 97.6 F 96.9 F Pulse Rate 73 71 Respiratory Rate 18 16 Blood Pressure 111/52 L 144/63 H Pulse Oximetry 73 L 100 BMI result Body Mass Index 39.3 Labs Results: 01/24/21 15:20 01/24/21 15:20 Imaging Radiology Impressions: ITS Impressions Brain MRI 01/24/21 20:15 IMPRESSION: 1. No acute intracranial abnormalities. 2. Mild underlying microangiopathy and generalized cerebral volume loss. Medications Medications Current Medications Acetaminophen (Acetaminophen 325 Mg Tablet) 650 mg PO Q6H PRN PRN Reason: Pain, Moderate (Pain Scale 4-6 Last Admin: 01/25/21 14:28 Dose: 650 mg Documented by: Atorvastatin Calcium (Atorvastatin Calcium 20 Mg Tablet) 20 mg PO BEDTIME [facility] Last Admin: 01/28/21 21:06 Dose: 20 mg Documented by: Bupropion HCl (Bupropion Hcl Xl 150 Mg Tab.Er.24h) 150 mg PO DAILY [facility] Last Admin: 01/29/21 08:32 Dose: 150 mg Documented by: Cariprazine (Cariprazine Hcl 1.5 Mg Capsule) 1.5 mg PO DAILY [facility] Last Admin: 01/29/21 08:32 Dose: 1.5 mg Documented by: Levothyroxine Sodium (Levothyroxine Sodium 100 Mcg Tablet) 100 mcg PO DAILY@0600 [facility] Last Admin: 01/29/21 07:04 Dose: 100 mcg Documented by: [place] Carbonate ([place] Carbonate Er 450 Mg Tablet.Er) 450 mg PO DAILY [facility] Last Admin: 01/29/21 08:32 Dose: 450 mg Documented by: Omeprazole (Omeprazole 20 Mg Capsule.Dr) 20 mg PO DAILY@0630 [facility] Last Admin: 01/29/21 07:04 Dose: 20 mg Documented by: Ondansetron HCl (Ondansetron Odt 4 Mg Tab.Rapdis) 4 mg TRANSLINGU Q8H PRN PRN Reason: nausea and vomiting Vortioxetine (Vortioxetine Hydrobromide 20 Mg Tablet) 20 mg PO DAILY [facility] Last Admin: 01/29/21 08:32 Dose: 20 mg Documented by: Zolpidem Tartrate (Zolpidem Tartrate 5 Mg Tablet) 5 mg PO BEDTIME [facility] Last Admin: 01/28/21 21:06 Dose: 5 mg Documented by: Allergies Allergies Allergy/AdvReac Type Severity Reaction Status Date / Time No Known Allergies Allergy Verified 11/24/20 10:29 Assessment & Plan Assessment & Plan (1) Bipolar disorder with severe depression: Status: Acute Code(s): F31.4 - Bipolar disorder, current episode depressed, severe, without psychotic features Assessment and Plan: Continue Vryalar lithium (2) Generalized anxiety disorder: Status: Acute Code(s): F41.1 - Generalized anxiety disorder (3) Parkinsonian syndrome: Status: Acute Code(s): G20 - Parkinson's disease (4) Suicide attempt by drug ingestion: Status: Acute Code(s): T50.902A - Poisoning by unspecified drugs, medicaments and biological substances, intentional self-harm, initial encounter Assessment and Plan: Patient appears to be status post drug overdose after stockpiling morning meds for. Of time. This appear to have caused a delirium and balance problems. [place] levels from [address] [place] [address] rehab setting and [facility] were in the 1.01.2 range unclear what the patient may have been in the community. Has parkinsonian symptoms will lower Vryalar to 1.5 mg start Mirapex for depression and parkinsonian symptoms check labs EKG head of the MRI shows volume loss microvascular problems but no evidence of CVA Continue lithium Vryalar Wellbutrin Trintellix at present. Re-evaluate patient's ability to live at home alone. Will look at discharge alternatives and is currently accepting helpful try to get family involvement. Patient does have a history of quite significant suicide attempts in the past. She has seen Dr. nithya Foote in the past. Depakote had been discontinued over the past year Pending neuro consult EEG I spent minutes with the patient and/or on the patient floor today, greater than?50% of which was spent counseling/coordinating care. Reason for contiued inpatient stay Substantial Risk for: harm to self and rapid decompensation
[2021-01-29 20:00] VITALS: BP 137/63; PULSE 71; TEMP 36.8
[2021-01-29] MEDS: Atorvastatin Calcium 20 MG TABLET PO (21:10)
[2021-01-29] MEDS: Acetaminophen 325 MG TABLET 650 MG PO (21:13)
[2021-01-30] MEDS: Omeprazole 20 MG CAPSULE.DR PO (06:28)
[2021-01-30] MEDS: Levothyroxine Sodium 100 MCG TABLET PO (06:28)
[2021-01-30] MEDS: Cariprazine HCl 1.5 MG CAPSULE PO (09:27)
[2021-01-30] MEDS: buPROPion HCl XL 150 MG TAB.ER.24H PO (09:27)
[2021-01-30] MEDS: Lithium Carbonate ER 450 MG TABLET.ER PO (09:27)
[2021-01-30] MEDS: Vortioxetine Hydrobromide 20 MG TABLET PO (09:27)
--- NOTE | 2021-01-30 10:32 | PM.NEUROCN ---
History of Present Illness Data of Consult Service Date: 01/30/21 Primary Care Provider: Arvind Baez MD HPI Reason for consult: Gait disorder 60 years old woman who was admitted on psychiatric floor with severe anxiety disorder reported that for last couple of weeks she was having difficulty walking because of her pain and right inguinal region and right knee. She has started to use a walker. There was no loss of bowel bladder control or or trauma. Review of Systems Review of Systems: No recent cold or flu-like illness. No change in bowel bladder pattern. [facility] Past Medical History Medical History (Updated 01/30/21 @ 10:37 by Tammy Posey MD) Generalized anxiety disorder Knee pain Morbid obesity Post-menopausal Screening for breast cancer Screening for colon cancer Suicide attempt by drug ingestion Family History Family History Father Diabetes Hypertension CVD (cardiovascular disease) Mother Diabetes Sister Multiple sclerosis Brother Acute Crohn's disease Other Mental health disorder Surgical History Surgical History No pertinent past surgical history Social History Social History Household Members: None Housing: House Do you presently have visiting nurse or other home services: Yes Alcohol intake: current Alcohol intake frequency: holidays/special occasions only Patient Tobacco Use Status: Never used Tobacco Years Smoked: 1 Use of substances other than those prescribed or required for medical reasons: No Currently Displaying Signs/Symptoms of Drug Intoxication Withdrawal: No Have you been hit, kicked, punched, or otherwise hurt by someone within the past year? If so, by whom?: No Do you feel safe in your current relationship?: No Current Relationship Is there a partner from a previous relationship who is making you feel unsafe now?: No Are you made to feel afraid or neglected: No Advance Directives: No Advance Directives Information Provided: No Advance Directives on File: No Do you have thoughts of harming others: None Do you have a plan to hurt others: No Plan Recently lost weight without trying: No How much weight loss: Not applicable Eating poorly because of decreased appetite: No Nutrition screen score: 0 Nutrition Risks: No Nutritional Risk Patient : No : No Poor oral hygiene: No service: No Current occupational status: unemployed Sexual orientation: Did not discuss Meds Allergies Allergy/AdvReac Type Severity Reaction Status Date / Time No Known Allergies Allergy Verified 11/24/20 10:29 Active Medications: Current Medications Acetaminophen (Acetaminophen 325 Mg Tablet) 650 mg PO Q6H PRN PRN Reason: Pain, Moderate (Pain Scale 4-6 Last Admin: 01/29/21 21:13 Dose: 650 mg Documented by: Atorvastatin Calcium (Atorvastatin Calcium 20 Mg Tablet) 20 mg PO BEDTIME [facility] Last Admin: 01/29/21 21:10 Dose: 20 mg Documented by: Bupropion HCl (Bupropion Hcl Xl 150 Mg Tab.Er.24h) 150 mg PO DAILY [facility] Last Admin: 01/30/21 09:27 Dose: 150 mg Documented by: Cariprazine (Cariprazine Hcl 1.5 Mg Capsule) 1.5 mg PO DAILY [facility] Last Admin: 01/30/21 09:27 Dose: 1.5 mg Documented by: Levothyroxine Sodium (Levothyroxine Sodium 100 Mcg Tablet) 100 mcg PO DAILY@0600 [facility] Last Admin: 01/30/21 06:28 Dose: 100 mcg Documented by: [place] Carbonate ([place] Carbonate Er 450 Mg Tablet.Er) 450 mg PO DAILY [facility] Last Admin: 01/30/21 09:27 Dose: 450 mg Documented by: Omeprazole (Omeprazole 20 Mg Capsule.Dr) 20 mg PO DAILY@0630 [facility] Last Admin: 01/30/21 06:28 Dose: 20 mg Documented by: Ondansetron HCl (Ondansetron Odt 4 Mg Tab.Rapdis) 4 mg TRANSLINGU Q8H PRN PRN Reason: nausea and vomiting Vortioxetine (Vortioxetine Hydrobromide 20 Mg Tablet) 20 mg PO DAILY [facility] Last Admin: 01/30/21 09:27 Dose: 20 mg Documented by: Home Medications Medication Instructions Recorded Confirmed Last Taken Type atorvastatin 20 mg tablet 20 mg PO BEDTIME 12/30/19 01/24/21 01/23/21 History lithium carbonate 450 mg 450 mg PO DAILY 12/30/19 01/24/21 01/23/21 History tablet,extended release pantoprazole 40 mg tablet,delayed 40 mg PO DAILY 12/30/19 01/24/21 01/24/21 History release vortioxetine 20 mg tablet 20 mg PO DAILY 03/22/20 01/24/21 01/24/21 History cariprazine 3 mg capsule 3 mg PO DAILY 07/14/20 01/24/21 01/23/21 History zolpidem 5 mg tablet 5 mg PO BEDTIME tab 11/24/20 01/24/21 01/23/21 History bupropion HCl 200 mg tablet,12 hr 1 tab PO QAM 01/24/21 01/24/21 01/23/21 History sustained-release levothyroxine 100 mcg tablet 100 mcg PO DAILY 01/24/21 01/24/21 01/23/21 History Physical Exam Vital Signs: Vital Signs: Last Vital Signs Temp 98.2 F 01/29/21 20:00 Pulse 71 01/29/21 20:00 Resp 16 01/29/21 06:00 BP 137/63 01/29/21 20:00 Pulse Ox 100 01/29/21 06:00 BMI result Body Mass Index 39.3 Neuro: Other: She was alert and awake with normal spontaneity of speech fluency comprehension and affect. Pupils were equal and reactive to light and extraocular muscles were intact. Visual [place] are full to threat. Face was symmetrical. There was no pronator drift. Deep tendon reflexes were trace to absent with flexor plantars. [id number] testing was normal. There was no significant tremor. She was walking with a walker in a cautious gait but could walk without it. Lateral rotation of right hip was slightly painful and inward rotation more painful. There was mild swelling of right knee. Results Labs CBC & Chem 7: 01/24/21 15:20 01/24/21 15:20 Labs: MRI of brain revealed mild microvascular ischemic changes. Assessment and Plan (1) Gait disorder: Status: Acute 60 years old woman who has difficulty walking related to right hip and knee arthritis. I do not see any significant signs of parkinsonism. MRI of brain findings are minor and not related and insignificant. For those findings, usual recommendations were, blood pressure control, checking lipid profile and an anti-platelet agent. For her gait disorder, she should be educated and appropriate management should be done for right knee and hip arthritis. Procedures Date of Service Date of Service: 01/30/21
[2021-01-30 18:00] VITALS: BP 142/62; PULSE 76; TEMP 36.6
[2021-01-30] MEDS: Atorvastatin Calcium 20 MG TABLET PO (20:28)
--- NOTE | 2021-01-30 22:18 | P.PNPSI_ITS ---
Subjective Subjective Date of Service: 01/30/21 Reason For Visit: Depression Subjective Notes: Conditional Voluntary Interim History: Patient agreeable to meeting with family tomorrow. Seems relatively stable and hospital situation still trying to integrate paranoid inferior based memories. Cannot remember if she intentionally overdose. She has concerns regarding her stability and safety going home but denies that she has had current suicidal plan or intent. Has been weighing if she has any other options for living be signs living and her family home Medication Compliance: Yes Mental Status Exam Mental Status Exam Narrative: Patient is a somewhat overweight female she has a walker she is casually dressed reasonably groomed. Patient is cooperative to the interview. Some degree of superficial brightness. Mood is somewhat anxious at times expansive she is alert knows the year month place reason she is here. Patient does state that she had often stop taking her morning pills and may have been stockpiling pills. She reports periods at the rehab center where she felt people were talking about her insight conspiring against her. No clear hallucinations sensorium seems clear at this time impulse control intact in this setting feels quite fearful that she might have harmed herself if she were back home. Insight judgment impaired present impulse control seems intact she is walking with the aid of a walker Diagnostics Vital Signs (24Hr): Vital Signs - 24 hr 01/30/21 18:00 Temperature 97.9 F Pulse Rate 76 Blood Pressure 142/62 H BMI result Body Mass Index 39.3 Labs Results: 01/24/21 15:20 01/24/21 15:20 Imaging Radiology Impressions: ITS Impressions Brain MRI 01/24/21 20:15 IMPRESSION: 1. No acute intracranial abnormalities. 2. Mild underlying microangiopathy and generalized cerebral volume loss. Medications Medications Current Medications Acetaminophen (Acetaminophen 325 Mg Tablet) 650 mg PO Q6H PRN PRN Reason: Pain, Moderate (Pain Scale 4-6 Last Admin: 01/29/21 21:13 Dose: 650 mg Documented by: Atorvastatin Calcium (Atorvastatin Calcium 20 Mg Tablet) 20 mg PO BEDTIME [facility] Last Admin: 01/30/21 20:28 Dose: 20 mg Documented by: Bupropion HCl (Bupropion Hcl Xl 150 Mg Tab.Er.24h) 150 mg PO DAILY [facility] Last Admin: 01/30/21 09:27 Dose: 150 mg Documented by: Cariprazine (Cariprazine Hcl 1.5 Mg Capsule) 1.5 mg PO DAILY [facility] Last Admin: 01/30/21 09:27 Dose: 1.5 mg Documented by: Levothyroxine Sodium (Levothyroxine Sodium 100 Mcg Tablet) 100 mcg PO DAILY@0600 [facility] Last Admin: 01/30/21 06:28 Dose: 100 mcg Documented by: [place] Carbonate ([place] Carbonate Er 450 Mg Tablet.Er) 450 mg PO DAILY [facility] Last Admin: 01/30/21 09:27 Dose: 450 mg Documented by: Omeprazole (Omeprazole 20 Mg Capsule.Dr) 20 mg PO DAILY@0630 [facility] Last Admin: 01/30/21 06:28 Dose: 20 mg Documented by: Ondansetron HCl (Ondansetron Odt 4 Mg Tab.Rapdis) 4 mg TRANSLINGU Q8H PRN PRN Reason: nausea and vomiting Vortioxetine (Vortioxetine Hydrobromide 20 Mg Tablet) 20 mg PO DAILY [facility] Last Admin: 01/30/21 09:27 Dose: 20 mg Documented by: Allergies Allergies Allergy/AdvReac Type Severity Reaction Status Date / Time No Known Allergies Allergy Verified 11/24/20 10:29 Assessment & Plan Assessment & Plan (1) Bipolar disorder with severe depression: Status: Acute Code(s): F31.4 - Bipolar disorder, current episode depressed, severe, without psychotic features Assessment and Plan: Continue Vryalar lithium check labs eeg according to Dr. denis marie (2) Generalized anxiety disorder: Status: Acute Code(s): F41.1 - Generalized anxiety disorder (3) Parkinsonian syndrome: Status: Acute Code(s): G20 - Parkinson's disease Assessment and Plan: Case reviewed with Dr. Posey (4) Suicide attempt by drug ingestion: Status: Acute Code(s): T50.902A - Poisoning by unspecified drugs, medicaments and biological substances, intentional self-harm, initial encounter Assessment and Plan: Patient appears to be status post drug overdose after stockpiling morning meds for. Of time. This appear to have caused a delirium and balance problems. [place] levels from [address] [place] [address] rehab setting and [facility] were in the 1.01.2 range unclear what the patient may have been in the community. Has parkinsonian symptoms will lower Vryalar to 1.5 mg start Mirapex for depression and parkinsonian symptoms check labs EKG head of the MRI shows volume loss microvascular problems but no evidence of CVA Continue lithium Vryalar Wellbutrin Trintellix at present. Re-evaluate patient's ability to live at home alone. Will look at discharge alternatives and is currently accepting helpful try to get family involvement. Patient does have a history of quite significant suicide attempts in the past. Continue present medication encourage problem is solving maintain perspective family meeting to help with discharge planning and safety I spent minutes with the patient and/or on the patient floor today, greater than?50% of which was spent counseling/coordinating care. Reason for contiued inpatient stay Substantial Risk for: harm to self and rapid decompensation
[2021-01-31] MEDS: Omeprazole 20 MG CAPSULE.DR PO (06:32)
[2021-01-31] MEDS: Levothyroxine Sodium 100 MCG TABLET PO (06:32)
[2021-01-31] MEDS: Vortioxetine Hydrobromide 20 MG TABLET PO (08:37)
[2021-01-31] MEDS: Cariprazine HCl 1.5 MG CAPSULE PO (08:37)
[2021-01-31] MEDS: Lithium Carbonate ER 450 MG TABLET.ER PO (08:37)
[2021-01-31] MEDS: buPROPion HCl XL 150 MG TAB.ER.24H PO (08:37)
[2021-01-31 09:41] VITALS: BP 123/67; PULSE 71
[2021-01-31] MEDS: amantadine HCL 100 MG CAPSULE PO (12:58)
[2021-01-31] MEDS: Lidocaine 4 % Patch ADH..PATCH 1 PATCH TRANSDERMA (12:58)
[2021-01-31 18:00] VITALS: BP 136/68; PULSE 74; TEMP 36.1; O2SAT 99
[2021-01-31 20:58] LABS: COVID-19 Test Negative (Negative); IDNOW Serial# 08D9AD1C
[2021-01-31] MEDS: Acetaminophen 325 MG TABLET 650 MG PO (21:16)
[2021-01-31] MEDS: Atorvastatin Calcium 20 MG TABLET PO (21:17)
[2021-02-01] MEDS: Levothyroxine Sodium 100 MCG TABLET PO (06:08)
[2021-02-01] MEDS: Omeprazole 20 MG CAPSULE.DR PO (06:08)
[2021-02-01 06:20] VITALS: BP 111/66; PULSE 69; RESP 16; TEMP 36.3; O2SAT 100
[2021-02-01 07:00] VITALS: BMI 40.4
[2021-02-01] MEDS: buPROPion HCl XL 300 MG TAB.ER.24H PO (08:39)
[2021-02-01] MEDS: Cariprazine HCl 3 MG CAPSULE PO (08:40)
[2021-02-01] MEDS: amantadine HCL 100 MG CAPSULE PO (08:40)
[2021-02-01] MEDS: Vortioxetine Hydrobromide 20 MG TABLET PO (08:40)
[2021-02-01] MEDS: Lithium Carbonate ER 450 MG TABLET.ER PO (08:40)
[2021-02-01] MEDS: Lidocaine 4 % Patch ADH..PATCH 1 PATCH TRANSDERMA (08:41)
[2021-02-01 17:24] VITALS: BP 123/65; PULSE 83; RESP 18; TEMP 36.2; O2SAT 99
[2021-02-01] MEDS: Atorvastatin Calcium 20 MG TABLET PO (20:27)
[2021-02-01] MEDS: Acetaminophen 325 MG TABLET 650 MG PO (22:09)
--- NOTE | 2021-02-01 22:34 | HO.PSYCHPN ---
Subjective Subjective Date of Service: 01/31/21 Reason For Visit: Depression Subjective Notes: Conditional Voluntary Interim History: Patient intermittently depressed rib ruminating worried about future and whether she can make changes. Still unclear what happened prior to admission intermittent hopelessness and vague SI. Medication Compliance: Yes Attending Groups: Intermittent Review of Systems Status post overdose gait disturbance Medical Review of Systems: unchanged Mental Status Exam Mental Status Exam Narrative: Patient is a somewhat overweight female she has a walker she is casually dressed reasonably groomed. Patient is cooperative to the interview. Some degree of superficial brightness. Mood is somewhat anxious at times expansive she is alert knows the year month place reason she is here. Patient does state that she had often stop taking her morning pills and may have been stockpiling pills. She reports periods at the rehab center where she felt people were talking about her insight conspiring against her. No clear hallucinations sensorium seems clear at this time impulse control intact in this setting feels quite fearful that she might have harmed herself if she were back home. Insight judgment impaired present impulse control seems intact she is walking with the aid of a walker Diagnostics Vital Signs (24Hr): Vital Signs - 24 hr 02/01/21 06:20 02/01/21 17:24 Temperature 97.4 F 97.2 F Pulse Rate 69 83 Respiratory Rate 16 18 Blood Pressure 111/66 123/65 Pulse Oximetry 100 99 BMI result Body Mass Index 40.4 Labs Results: 01/24/21 15:20 01/24/21 15:20 Labs: Laboratory Results - last 48 hr 01/31/21 20:07 COVID-19 ([facility]) Negative COVID-19 Clin Com See Note Imaging Radiology Impressions: ITS Impressions Brain MRI 01/24/21 20:15 IMPRESSION: 1. No acute intracranial abnormalities. 2. Mild underlying microangiopathy and generalized cerebral volume loss. Medications Medications Current Medications Acetaminophen (Acetaminophen 325 Mg Tablet) 650 mg PO Q6H PRN PRN Reason: Pain, Moderate (Pain Scale 4-6 Last Admin: 02/01/21 22:09 Dose: 650 mg Documented by: Amantadine HCl (Amantadine Hcl 100 Mg Capsule) 100 mg PO DAILY [facility] Last Admin: 02/01/21 08:40 Dose: 100 mg Documented by: Atorvastatin Calcium (Atorvastatin Calcium 20 Mg Tablet) 20 mg PO BEDTIME [facility] Last Admin: 02/01/21 20:27 Dose: 20 mg Documented by: Bupropion HCl (Bupropion Hcl Xl 300 Mg Tab.Er.24h) 300 mg PO DAILY [facility] Last Admin: 02/01/21 08:39 Dose: 300 mg Documented by: Cariprazine (Cariprazine Hcl 3 Mg Capsule) 3 mg PO DAILY [facility] Last Admin: 02/01/21 08:40 Dose: 3 mg Documented by: Levothyroxine Sodium (Levothyroxine Sodium 100 Mcg Tablet) 100 mcg PO DAILY@0600 [facility] Last Admin: 02/01/21 06:08 Dose: 100 mcg Documented by: Lidocaine (Lidocaine 4 % Patch Adh..Patch) 1 patch TRANSDERMA DAILY [facility]; Protocol Last Admin: 02/01/21 08:41 Dose: 1 patch Documented by: [place] Carbonate ([place] Carbonate Er 450 Mg Tablet.Er) 450 mg PO DAILY [facility] Last Admin: 02/01/21 08:40 Dose: 450 mg Documented by: Omeprazole (Omeprazole 20 Mg Capsule.Dr) 20 mg PO DAILY@0630 [facility] Last Admin: 02/01/21 06:08 Dose: 20 mg Documented by: Ondansetron HCl (Ondansetron Odt 4 Mg Tab.Rapdis) 4 mg TRANSLINGU Q8H PRN PRN Reason: nausea and vomiting Vortioxetine (Vortioxetine Hydrobromide 20 Mg Tablet) 20 mg PO DAILY [facility] Last Admin: 02/01/21 08:40 Dose: 20 mg Documented by: Allergies Allergies Allergy/AdvReac Type Severity Reaction Status Date / Time No Known Allergies Allergy Verified 11/24/20 10:29 Assessment & Plan Assessment & Plan (1) Bipolar disorder with severe depression: Status: Acute Code(s): F31.4 - Bipolar disorder, current episode depressed, severe, without psychotic features Assessment and Plan: Continue Vryalar lithium check labs increased will be trended 300 increase vyraylar 3 mg (2) Generalized anxiety disorder: Status: Acute Code(s): F41.1 - Generalized anxiety disorder (3) Parkinsonian syndrome: Status: Acute Code(s): G20 - Parkinson's disease Assessment and Plan: Case reviewed with Dr. Posey (4) Suicide attempt by drug ingestion: Status: Acute Code(s): T50.902A - Poisoning by unspecified drugs, medicaments and biological substances, intentional self-harm, initial encounter Assessment and Plan: Patient appears to be status post drug overdose after stockpiling morning meds for. Of time. This appear to have caused a delirium and balance problems. [place] levels from [address] [place] [address] [facility] were in the 1.01.2 range unclear what the patient may have been in the community. Has parkinsonian symptoms will lower Vryalar to 1.5 mg start Mirapex for depression and parkinsonian symptoms check labs EKG head of the MRI shows volume loss microvascular problems but no evidence of CVA Continue lithium Vryalar Wellbutrin Trintellix at present. Re-evaluate patient's ability to live at home alone. Will look at discharge alternatives and is currently accepting helpful try to get family involvement. Patient does have a history of quite significant suicide attempts in the past. Continue present medication encourage problem is solving maintain perspective family meeting to help with discharge planning and safety I spent minutes with the patient and/or on the patient floor today, greater than?50% of which was spent counseling/coordinating care. Reason for contiued inpatient stay Substantial Risk for: harm to self and rapid decompensation
--- NOTE | 2021-02-01 22:43 | P.PNPSI_ITS ---
Subjective Subjective Date of Service: 02/01/21 Reason For Visit: Depression Subjective Notes: Conditional Voluntary Interim History: Patient attended family meeting remains somewhat withdrawn resistant at times to behavioral activation denies active self-harm in this setting Medication Compliance: Yes Mental Status Exam Mental Status Exam Narrative: Patient is a somewhat overweight female she has a walker she is casually dressed reasonably groomed. Patient is cooperative to the interview. Some degree of superficial brightness. Mood is somewhat anxious at times expansive she is alert knows the year month place reason she is here. Patient does state that she had often stop taking her morning pills and may have been stockpiling pills. She reports periods at the rehab center where she felt people were talking about her insight conspiring against her. No clear hallucinations sensorium seems clear at this time impulse control intact in this setting feels quite fearful that she might have harmed herself if she were back home. Insight judgment impaired present impulse control seems intact she is walking with the aid of a walker Diagnostics Vital Signs (24Hr): Vital Signs - 24 hr 02/01/21 06:20 02/01/21 17:24 Temperature 97.4 F 97.2 F Pulse Rate 69 83 Respiratory Rate 16 18 Blood Pressure 111/66 123/65 Pulse Oximetry 100 99 BMI result Body Mass Index 40.4 Labs Results: 01/24/21 15:20 01/24/21 15:20 Labs: Laboratory Results - last 48 hr 01/31/21 20:07 COVID-19 ([facility]) Negative COVID-19 Clin Com See Note Imaging Radiology Impressions: ITS Impressions Brain MRI 01/24/21 20:15 IMPRESSION: 1. No acute intracranial abnormalities. 2. Mild underlying microangiopathy and generalized cerebral volume loss. Medications Medications Current Medications Acetaminophen (Acetaminophen 325 Mg Tablet) 650 mg PO Q6H PRN PRN Reason: Pain, Moderate (Pain Scale 4-6 Last Admin: 02/01/21 22:09 Dose: 650 mg Documented by: Amantadine HCl (Amantadine Hcl 100 Mg Capsule) 100 mg PO DAILY [facility] Last Admin: 02/01/21 08:40 Dose: 100 mg Documented by: Atorvastatin Calcium (Atorvastatin Calcium 20 Mg Tablet) 20 mg PO BEDTIME [facility] Last Admin: 02/01/21 20:27 Dose: 20 mg Documented by: Bupropion HCl (Bupropion Hcl Xl 300 Mg Tab.Er.24h) 300 mg PO DAILY [facility] Last Admin: 02/01/21 08:39 Dose: 300 mg Documented by: Cariprazine (Cariprazine Hcl 3 Mg Capsule) 3 mg PO DAILY [facility] Last Admin: 02/01/21 08:40 Dose: 3 mg Documented by: Levothyroxine Sodium (Levothyroxine Sodium 100 Mcg Tablet) 100 mcg PO DAILY@0600 [facility] Last Admin: 02/01/21 06:08 Dose: 100 mcg Documented by: Lidocaine (Lidocaine 4 % Patch Adh..Patch) 1 patch TRANSDERMA DAILY [facility]; Protocol Last Admin: 02/01/21 08:41 Dose: 1 patch Documented by: [place] Carbonate ([place] Carbonate Er 450 Mg Tablet.Er) 450 mg PO DAILY [facility] Last Admin: 02/01/21 08:40 Dose: 450 mg Documented by: Omeprazole (Omeprazole 20 Mg Capsule.Dr) 20 mg PO DAILY@0630 [facility] Last Admin: 02/01/21 06:08 Dose: 20 mg Documented by: Ondansetron HCl (Ondansetron Odt 4 Mg Tab.Rapdis) 4 mg TRANSLINGU Q8H PRN PRN Reason: nausea and vomiting Vortioxetine (Vortioxetine Hydrobromide 20 Mg Tablet) 20 mg PO DAILY [facility] Last Admin: 02/01/21 08:40 Dose: 20 mg Documented by: Allergies Allergies Allergy/AdvReac Type Severity Reaction Status Date / Time No Known Allergies Allergy Verified 11/24/20 10:29 Assessment & Plan Assessment & Plan (1) Bipolar disorder with severe depression: Status: Acute Code(s): F31.4 - Bipolar disorder, current episode depressed, severe, without psychotic features Assessment and Plan: [facility] increased will be trended 300 increase vyraylar 3 mg physical therapy consult discharge planning call placed to [facility] (2) Generalized anxiety disorder: Status: Acute Code(s): F41.1 - Generalized anxiety disorder (3) Parkinsonian syndrome: Status: Acute Code(s): G20 - Parkinson's disease Assessment and Plan: Case reviewed with Dr. Posey (4) Suicide attempt by drug ingestion: Status: Acute Code(s): T50.902A - Poisoning by unspecified drugs, medicaments and biological subs tances, intentional self-harm, initial encounter Assessment and Plan: Patient appears to be status post drug overdose after stockpiling morning meds for. Of time. This appear to have caused a delirium and balance problems. [place] levels from [address] [place], [place] [id number] setting and [facility] were in the 1.01.2 range unclear what the patient may have been in the community. Has parkinsonian symptoms will lower Vryalar to 1.5 mg start Mirapex for depression and parkinsonian symptoms check labs EKG head of the MRI shows volume loss microvascular problems but no evidence of CVA Continue lithium Vryalar Wellbutrin Trintellix at present. Re-evaluate patient's ability to live at home alone. Will look at discharge alternatives and is currently accepting helpful try to get family involvement. Patient does have a history of quite significant suicide attempts in the past. Continue present medication encourage problem is solving maintain perspective family meeting to help with discharge planning and safety I spent minutes with the patient and/or on the patient floor today, greater than?50% of which was spent counseling/coordinating care. Reason for contiued inpatient stay Substantial Risk for: harm to self and rapid decompensation
[2021-02-02 06:00] VITALS: BP 133/70; PULSE 80; RESP 14; TEMP 36.6; O2SAT 95
[2021-02-02] MEDS: Omeprazole 20 MG CAPSULE.DR PO (06:47)
[2021-02-02] MEDS: Levothyroxine Sodium 100 MCG TABLET PO (06:47)
[2021-02-02 08:32] LABS: Lithium 0.42 mmol/L (0.60-1.20)
[2021-02-02 08:42] LABS: Alanine Aminotransferase 32 U/L (0-31); Albumin Level 4.1 g/dL (3.5-5.0); Alkaline Phosphatase 67 U/L (39-117); Anion Gap 9 (12-20); Aspartate Amino Transferase 28 U/L (5-31); Bilirubin Total 0.6 mg/dL (0.0-1.0); Blood Urea Nitrogen 21 mg/dL (9-16); Calcium 9.9 mg/dL (8.4-10.2); Carbon Dioxide 32 mmol/L (22-29); Chloride 106 mmol/L (96-108); Creatinine Clr Calc Pharmacy 61.5; Estimated Glomerular Filt Rate 56; Glucose Fasting 105 mg/dL (60-99); Potassium 4.3 mmol/L (3.3-5.1); Sodium 143 mmol/L (135-145); Total Protein 7.8 g/dL (6.5-8.0)
[2021-02-02] MEDS: Vortioxetine Hydrobromide 20 MG TABLET PO (09:02)
[2021-02-02] MEDS: buPROPion HCl XL 300 MG TAB.ER.24H PO (09:02)
[2021-02-02] MEDS: Lithium Carbonate ER 450 MG TABLET.ER PO (09:02)
[2021-02-02] MEDS: Cariprazine HCl 3 MG CAPSULE PO (09:02)
[2021-02-02] MEDS: amantadine HCL 100 MG CAPSULE PO (09:02)
[2021-02-02] MEDS: Lidocaine 4 % Patch ADH..PATCH 1 PATCH TRANSDERMA (09:04)
[2021-02-02 09:22] LABS: COVID-19 Test Negative (Negative)
[2021-02-02 10:16] VITALS: BP 123/65; PULSE 83; O2SAT 99
[2021-02-02 19:28] VITALS: BP 100/65; PULSE 94; RESP 18; TEMP 36.6; O2SAT 98
[2021-02-02] MEDS: Atorvastatin Calcium 20 MG TABLET PO (20:43)
--- NOTE | 2021-02-02 22:53 | P.PNPSI_ITS ---
Subjective Subjective Date of Service: 02/02/21 Reason For Visit: Depression Subjective Notes: Conditional Voluntary Healthcare Proxy: No Interim History: Is patient some more agreeable to getting help from her family. Does not feel that she can stay with a family member when she returns home. She has opened to considering moving his looking in options. Has vague intermittent is hallucinations at times auditory in nature the is no clear severe cycling Medication Compliance: Yes Attending Groups: Intermittent Review of Systems Acute medical concerns: Yes Physical therapy consult reviewed Mental Status Exam Mental Status Exam Patient Appearance: Appropriate Patient Orientation: Person, Place, Time and Situation Level of Consciousness: Alert Patient Behavior: Talkative Mood Description: Flat and Apprehensive Affect Description: Anxious, Flat and Apprehensive Ability to Follow Directions: Good Speech Pattern: Spontaneous Speech Memory Description: Intact Hallucinations: None Delusions: Not Present Thought Process: Goal Oriented Thought Content: positive for Goal Oriented Depressive Symptoms: Increased Anxiety, Loss of Int. in Activity, Unhappiness, Low Self Esteem and Loss of Energy Judgement: Fair Judgement and Insight: Denies active self-harm Diagnostics Vital Signs (24Hr): Vital Signs - 24 hr 02/02/21 06:00 02/02/21 10:16 02/02/21 19:28 Temperature 97.8 F 97.8 F Pulse Rate 80 83 94 Respiratory Rate 14 18 Blood Pressure 133/70 123/65 100/65 Pulse Oximetry 95 99 98 BMI result Body Mass Index 40.4 Labs Results: 01/24/21 15:20 02/02/21 08:11 Labs: Laboratory Results - last 48 hr 02/02/21 02/02/21 02/02/21 08:11 08:12 08:17 Sodium 143 Potassium 4.3 Chloride 106 Carbon Dioxide 32 H Anion Gap 9 L BUN 21 H D Creatinine 1.01 Estim Creat Clear Calc 61.5 Estimated GFR 56 Fasting Glucose 105 H Calcium 9.9 Total Bilirubin 0.6 AST 28 ALT 32 H Alkaline Phosphatase 67 Total Protein 7.8 Albumin 4.1 [place] 0.42 L COVID-19 ([facility]) Negative COVID-19 Clin Com See Note Imaging Radiology Impressions: ITS Impressions Brain MRI 01/24/21 20:15 IMPRESSION: 1. No acute intracranial abnormalities. 2. Mild underlying microangiopathy and generalized cerebral volume loss. Medications Medications Current Medications Acetaminophen (Acetaminophen 325 Mg Tablet) 650 mg PO Q6H PRN PRN Reason: Pain, Moderate (Pain Scale 4-6 Last Admin: 02/01/21 22:09 Dose: 650 mg Documented by: Amantadine HCl (Amantadine Hcl 100 Mg Capsule) 100 mg PO DAILY [facility] Last Admin: 02/02/21 09:02 Dose: 100 mg Documented by: Atorvastatin Calcium (Atorvastatin Calcium 20 Mg Tablet) 20 mg PO BEDTIME [facility] Last Admin: 02/02/21 20:43 Dose: 20 mg Documented by: Bupropion HCl (Bupropion Hcl Xl 300 Mg Tab.Er.24h) 300 mg PO DAILY [facility] Last Admin: 02/02/21 09:02 Dose: 300 mg Documented by: Cariprazine (Cariprazine Hcl 3 Mg Capsule) 3 mg PO DAILY [facility] Last Admin: 02/02/21 09:02 Dose: 3 mg Documented by: Levothyroxine Sodium (Levothyroxine Sodium 100 Mcg Tablet) 100 mcg PO DAILY@0600 [facility] Last Admin: 02/02/21 06:47 Dose: 100 mcg Documented by: Lidocaine (Lidocaine 4 % Patch Adh..Patch) 1 patch TRANSDERMA DAILY [facility]; Protocol Last Admin: 02/02/21 09:04 Dose: 1 patch Documented by: [place] Carbonate ([place] Carbonate Er 450 Mg Tablet.Er) 450 mg PO DAILY [facility] Last Admin: 02/02/21 09:02 Dose: 450 mg Documented by: Omeprazole (Omeprazole 20 Mg Capsule.Dr) 20 mg PO DAILY@0630 [facility] Last Admin: 02/02/21 06:47 Dose: 20 mg Documented by: Ondansetron HCl (Ondansetron Odt 4 Mg Tab.Rapdis) 4 mg TRANSLINGU Q8H PRN PRN Reason: nausea and vomiting Vortioxetine (Vortioxetine Hydrobromide 20 Mg Tablet) 20 mg PO DAILY [facility] Last Admin: 02/02/21 09:02 Dose: 20 mg Documented by: Allergies Allergies Allergy/AdvReac Type Severity Reaction Status Date / Time No Known Allergies Allergy Verified 11/24/20 10:29 Assessment & Plan Assessment & Plan (1) Bipolar disorder with severe depression: Status: Acute Code(s): F31.4 - Bipolar disorder, current episode depressed, severe, without psychotic features Assessment and Plan: Continue Vryalar lithium check labs increased [id number] increase vyraylar 3 mg physical therapy consult discharge planning call placed to [facility] (2) Generalized anxiety disorder: Status: Acute Code(s): F41.1 - Generalized anxiety disorder (3) Parkinsonian syndrome: Status: Acute Code(s): G20 - Parkinson's disease Assessment and Plan: Case reviewed with Dr. Posey (4) Suicide attempt by drug ingestion: Status: Acute Code(s): T50.902A - Poisoning by unspecified drugs, medicaments and biological substances, intentional self-harm, initial encounter Assessment and Plan: Patient appears to be status post drug overdose after stockpiling morning meds for. Of time. This appear to have caused a delirium and balance problems. L ithium levels from [address] [place] [address] rehab setting and [facility] were in the 1.01.2 range unclear what the patient may have been in the community. Has parkinsonian symptoms will lower Vryalar to 1.5 mg start Mirapex for depression and parkinsonian symptoms check labs EKG head of the MRI shows volume loss microvascular problems but no evidence of CVA Continue lithium Vryalar Wellbutrin Trintellix at present. Re-evaluate patient's ability to live at home alone. Will look at discharge alternatives a nd is currently accepting helpful try to get family involvement. Patient does have a history of quite significant suicide attempts in the past. Continue present medication encourage problem is solving maintain perspective family meeting to help with discharge planning and safety I spent minutes with the patient and/or on the patient floor today, greater than?50% of which was spent counseling/coordinating care. Reason for contiued inpatient stay Substantial Risk for: harm to self, rapid decompensation and med/psych decompensation
[2021-02-03] MEDS: Omeprazole 20 MG CAPSULE.DR PO (06:13)
[2021-02-03] MEDS: Levothyroxine Sodium 100 MCG TABLET PO (06:13)
[2021-02-03] MEDS: buPROPion HCl XL 300 MG TAB.ER.24H PO (09:37)
[2021-02-03] MEDS: Lithium Carbonate ER 450 MG TABLET.ER PO (09:37)
[2021-02-03] MEDS: Vortioxetine Hydrobromide 20 MG TABLET PO (09:37)
[2021-02-03] MEDS: Lidocaine 4 % Patch ADH..PATCH 1 PATCH TRANSDERMA (09:37)
[2021-02-03] MEDS: amantadine HCL 100 MG CAPSULE PO (09:37)
[2021-02-03] MEDS: Cariprazine HCl 3 MG CAPSULE PO (09:37)
[2021-02-03 18:00] VITALS: BP 131/71; PULSE 82; RESP 16; TEMP 36.4
--- NOTE | 2021-02-03 18:07 | P.PNPSI_ITS ---
Subjective Subjective Date of Service: 02/03/21 Reason For Visit: Depression Interim History: Pt reports she is feeling improved. She does report being awakened every 1.5-2 hours to use the bathroom at night and does have bladder leakage. Discussed OP urology consultation and various options. [place] 0.42. Denies AH, minimal tremor noted today. Medication Compliance: Yes Side effects from medications: No Attending Groups: Yes Review of Systems Acute medical concerns: No Medical Review of Systems: unchanged Review of Systems Psychiatric: Reports abnormal sleep pattern, Reports anxiety and Reports depression Mental Status Exam Mental Status Exam Patient Appearance: Appropriate Patient Orientation: Person, Place, Time and Situation Level of Consciousness: Alert Patient Behavior: Talkative Mood Description: Flat Affect Description: Flat Ability to Follow Directions: Good Speech Pattern: Spontaneous Speech Memory Description: Intact Hallucinations: None Delusions: Not Present Thought Process: Goal Oriented Thought Content: positive for Goal Oriented Depressive Symptoms: Increased Anxiety Judgement: Fair Diagnostics Vital Signs (24Hr): Vital Signs - 24 hr 02/02/21 19:28 Temperature 97.8 F Pulse Rate 94 Respiratory Rate 18 Blood Pressure 100/65 Pulse Oximetry 98 BMI result Body Mass Index 40.4 Labs Results: 01/24/21 15:20 02/02/21 08:11 Labs: Laboratory Results - last 48 hr 02/02/21 02/02/21 02/02/21 08:11 08:12 08:17 Sodium 143 Potassium 4.3 Chloride 106 Carbon Dioxide 32 H Anion Gap 9 L BUN 21 H D Creatinine 1.01 Estim Creat Clear Calc 61.5 Estimated GFR 56 Fasting Glucose 105 H Calcium 9.9 Total Bilirubin 0.6 AST 28 ALT 32 H Alkaline Phosphatase 67 Total Protein 7.8 Albumin 4.1 [place] 0.42 L COVID-19 ([facility]) Negative COVID-19 Clin Com See Note Imaging Radiology Impressions: ITS Impressions Brain MRI 01/24/21 20:15 IMPRESSION: 1. No acute intracranial abnormalities. 2. Mild underlying microangiopathy and generalized cerebral volume loss. Medications Medications Current Medications Acetaminophen (Acetaminophen 325 Mg Tablet) 650 mg PO Q6H PRN PRN Reason: Pain, Moderate (Pain Scale 4-6 Last Admin: 02/01/21 22:09 Dose: 650 mg Documented by: Amantadine HCl (Amantadine Hcl 100 Mg Capsule) 100 mg PO DAILY [facility] Last Admin: 02/03/21 09:37 Dose: 100 mg Documented by: Atorvastatin Calcium (Atorvastatin Calcium 20 Mg Tablet) 20 mg PO BEDTIME [facility] Last Admin: 02/02/21 20:43 Dose: 20 mg Documented by: Bupropion HCl (Bupropion Hcl Xl 300 Mg Tab.Er.24h) 300 mg PO DAILY [facility] Last Admin: 02/03/21 09:37 Dose: 300 mg Documented by: Cariprazine (Cariprazine Hcl 3 Mg Capsule) 3 mg PO DAILY [facility] Last Admin: 02/03/21 09:37 Dose: 3 mg Documented by: Levothyroxine Sodium (Levothyroxine Sodium 100 Mcg Tablet) 100 mcg PO DAILY@0600 [facility] Last Admin: 02/03/21 06:13 Dose: 100 mcg Documented by: Lidocaine (Lidocaine 4 % Patch Adh..Patch) 1 patch TRANSDERMA DAILY [facility]; Protocol Last Admin: 02/03/21 09:37 Dose: 1 patch Documented by: [place] Carbonate ([place] Carbonate Er 450 Mg Tablet.Er) 450 mg PO DAILY [facility] Last Admin: 02/03/21 09:37 Dose: 450 mg Documented by: Omeprazole (Omeprazole 20 Mg Capsule.Dr) 20 mg PO DAILY@0630 [facility] Last Admin: 02/03/21 06:13 Dose: 20 mg Documented by: Ondansetron HCl (Ondansetron Odt 4 Mg Tab.Rapdis) 4 mg TRANSLINGU Q8H PRN PRN Reason: nausea and vomiting Vortioxetine (Vortioxetine Hydrobromide 20 Mg Tablet) 20 mg PO DAILY [facility] Last Admin: 02/03/21 09:37 Dose: 20 mg Documented by: Allergies Allergies Allergy/AdvReac Type Severity Reaction Status Date / Time No Known Allergies Allergy Verified 11/24/20 10:29 Assessment & Plan Assessment & Plan (1) Bipolar disorder with severe depression: Status: Acute Code(s): F31.4 - Bipolar disorder, current episode depressed, severe, without psychotic features Assessment and Plan: Continue Vryalar lithium check labs increased will be trended 300 increase vyraylar 3 mg physical therapy consult discharge planning call placed to [facility] (2) Generalized anxiety disorder: Status: Acute Code(s): F41.1 - Generalized anxiety disorder (3) Parkinsonian syndrome: Status: Acute Code(s): G20 - Parkinson's disease Assessment and Plan: Case reviewed with Dr. Posey (4) Suicide attempt by drug ingestion: Status: Acute Code(s): T50.902A - Poisoning by unspecified drugs, medicaments and biological substances, intentional self-harm, initial encounter Assessment and Plan: Patient appears to be status post drug overdose after stockpiling morning meds for. Of time. This appear to have caused a delirium and balance problems. [place] levels from [address] [place] [address] setting and [facility] were in the 1.01.2 range unclear what the patient may have been in the community. Has parkinsonian symptoms will lower Vryalar to 1.5 mg start Mirapex for depression and parkinsonian symptoms check labs EKG head of the MRI shows volume loss microvascular problems but no evidence of CVA Continue lithium Vryalar Wellbutrin Trintellix at present. Re-evaluate patient's ability to live at home alone. Will look at discharge alternatives and is currently accepting helpful try to get family involvement. Patient does have a history of quite significant suicide attempts in the past. Continue present medication encourage problem is solving maintain perspective family meeting to help with discharge planning and safety 02/03/21 Coverage Continue current plan of care. I spent minutes with the patient and/or on the patient floor today, greater than?50% of which was spent counseling/coordinating care. Patient educated on: therapeutic strategies and medical condition Informed Consent: understands and further education needed Reason for contiued inpatient stay Substantial Risk for: rapid decompensation
[2021-02-03] MEDS: Atorvastatin Calcium 20 MG TABLET PO (20:32)
[2021-02-04 06:00] VITALS: BP 133/62; PULSE 65; RESP 18; TEMP 35.9; O2SAT 100
[2021-02-04] MEDS: Omeprazole 20 MG CAPSULE.DR PO (06:13)
[2021-02-04] MEDS: Levothyroxine Sodium 100 MCG TABLET PO (06:13)
[2021-02-04] MEDS: Vortioxetine Hydrobromide 20 MG TABLET PO (08:15)
[2021-02-04] MEDS: buPROPion HCl XL 300 MG TAB.ER.24H PO (08:15)
[2021-02-04] MEDS: Lidocaine 4 % Patch ADH..PATCH 1 PATCH TRANSDERMA (08:15)
[2021-02-04] MEDS: Lithium Carbonate ER 450 MG TABLET.ER PO (08:15)
[2021-02-04] MEDS: amantadine HCL 100 MG CAPSULE PO (08:15)
[2021-02-04] MEDS: Cariprazine HCl 3 MG CAPSULE PO (08:15)
--- NOTE | 2021-02-04 15:44 | P.PNPSI_ITS ---
Subjective Subjective Date of Service: 02/04/21 Reason For Visit: Depression Interim History: Pt reports she still has intermittent insomnia, however does not want to review for changes in regime today. She is engaged in milieu, has developed a great relationship with her room-mate she reports (and room-mate confirms they are enjoying each other's company). Denies further symptoms and is preparing for discharge she reports. Attending milieu activites as well. Appears calm, attentive and mindful. Medication Compliance: Yes Side effects from medications: Yes (intermittent insomnia) Attending Groups: Yes Review of Systems Acute medical concerns: No Medical Review of Systems: unchanged Review of Systems Psychiatric: Reports abnormal sleep pattern, Reports anxiety and Reports d epression Mental Status Exam Mental Status Exam Patient Appearance: Appropriate Patient Orientation: Person, Place, Time and Situation Level of Consciousness: Alert Patient Behavior: Talkative Mood Description: Flat Affect Description: Flat Ability to Follow Directions: Good Speech Pattern: Spontaneous Speech Memory Description: Intact Hallucinations: None Delusions: Not Present Thought Process: Goal Oriented Thought Content: positive for Goal Oriented Depressive Symptoms: Increased Anxiety Judgement: Fair Diagnostics Vital Signs (24Hr): Vital Signs - 24 hr 02/03/21 18:00 02/04/21 06:00 Temperature 97.5 F 96.7 F L Pulse Rate 82 65 Respiratory Rate 16 18 Blood Pressure 131/71 133/62 Pulse Oximetry 100 BMI result Body Mass Index 40.4 Labs Results: 01/24/21 15:20 02/02/21 08:11 Imaging Radiology Impressions: ITS Impressions Brain MRI 01/24/21 20:15 IMPRESSION: 1. No acute intracranial abnormalities. 2. Mild underlying microangiopathy and generalized cerebral volume loss. Medications Medications Current Medications Acetaminophen (Acetaminophen 325 Mg Tablet) 650 mg PO Q6H PRN PRN Reason: Pain, Moderate (Pain Scale 4-6 Last Admin: 02/01/21 22:09 Dose: 650 mg Documented by: Amantadine HCl (Amantadine Hcl 100 Mg Capsule) 100 mg PO DAILY [facility] Last Admin: 02/04/21 08:15 Dose: 100 mg Documented by: Atorvastatin Calcium (Atorvastatin Calcium 20 Mg Tablet) 20 mg PO BEDTIME [facility] Last Admin: 02/03/21 20:32 Dose: 20 mg Documented by: Bupropion HCl (Bupropion Hcl Xl 300 Mg Tab.Er.24h) 300 mg PO DAILY [facility] Last Admin: 02/04/21 08:15 Dose: 300 mg Documented by: Cariprazine (Cariprazine Hcl 3 Mg Capsule) 3 mg PO DAILY [facility] Last Admin: 02/04/21 08:15 Dose: 3 mg Documented by: Levothyroxine Sodium (Levothyroxine Sodium 100 Mcg Tablet) 100 mcg PO DAILY@0600 [facility] Last Admin: 02/04/21 06:13 Dose: 100 mcg Documented by: Lidocaine (Lidocaine 4 % Patch Adh..Patch) 1 patch TRANSDERMA DAILY [facility]; Protocol Last Admin: 02/04/21 08:15 Dose: 1 patch Documented by: [place] Carbonate ([place] Carbonate Er 450 Mg Tablet.Er) 450 mg PO DAILY [facility] Last Admin: 02/04/21 08:15 Dose: 450 mg Documented by: Omeprazole (Omeprazole 20 Mg Capsule.Dr) 20 mg PO DAILY@0630 [facility] Last Admin: 02/04/21 06:13 Dose: 20 mg Documented by: Ondansetron HCl (Ondansetron Odt 4 Mg Tab.Rapdis) 4 mg TRANSLINGU Q8H PRN PRN Reason: nausea and vomiting Vortioxetine (Vortioxetine Hydrobromide 20 Mg Tablet) 20 mg PO DAILY [facility] Last Admin: 02/04/21 08:15 Dose: 20 mg Documented by: Allergies Allergies Allergy/AdvReac Type Severity Reaction Status Date / Time No Known Allergies Allergy Verified 11/24/20 10:29 Assessment & Plan Assessment & Plan (1) Bipolar disorder with severe depression: Status: Acute Code(s): F31.4 - Bipolar disorder, current episode depressed, severe, without psychotic features Assessment and Plan: Continue Vryalar lithium check labs increased will be trended 300 increase vyraylar 3 mg physical therapy consult discharge planning call placed to [facility] (2) Generalized anxiety disorder: Status: Acute Code(s): F41.1 - Generalized anxiety disorder (3) Parkinsonian syndrome: Status: Acute Code(s): G20 - Parkinson's disease Assessment and Plan: Case reviewed with Dr. Posey (4) Suicide attempt by drug ingestion: Status: Acute Code(s): T50.902A - Poisoning by unspecified drugs, medicaments and biological substances, intentional self-harm, initial encounter Assessment and Plan: Patient appears to be status post drug overdose after stockpiling morning meds for. Of time. This appear to have caused a delirium and balance problems. [place] levels from [address] [place] [address] rehab setting and [facility] were in the 1.01.2 range unclear what the patient may have been in the community. Has parkinsonian symptoms will lower Vryalar to 1.5 mg start Mirapex for depression and parkinsonian symptoms check labs EKG head of the MRI shows volume loss m icrovascular problems but no evidence of CVA Continue lithium Vryalar Wellbutrin Trintellix at present. Re-evaluate patient's ability to live at home alone. Will look at discharge alternatives and is currently accepting helpful try to get family involvement. Patient does have a history of quite significant suicide attempts in the past. Continue present medication encourage problem is solving maintain perspective family meeting to help with discharge planning and safety 02/03/21 Coverage Continue current plan of care. 02/03/21 Coverage Continue current plan of care. I spent minutes with the patient and/or on the patient floor today, greater than?50% of which was spent counseling/coordinating care. Patient educated on: therapeutic strategies and medical condition Informed Consent: understands and further education needed Reason for contiued inpatient stay Substantial Risk for: inability to function and rapid decompensation
[2021-02-04 16:45] VITALS: BP 149/75; PULSE 80; RESP 18; TEMP 36.6; O2SAT 100
[2021-02-04] MEDS: OXcarbazepine 300 MG TABLET PO (20:56)
[2021-02-04] MEDS: Atorvastatin Calcium 20 MG TABLET PO (20:56)
[2021-02-05 06:00] VITALS: BP 142/75; PULSE 72; RESP 16; TEMP 36; O2SAT 99
[2021-02-05] MEDS: Omeprazole 20 MG CAPSULE.DR PO (06:12)
[2021-02-05] MEDS: Levothyroxine Sodium 100 MCG TABLET PO (06:12)
[2021-02-05] MEDS: Vortioxetine Hydrobromide 20 MG TABLET PO (08:38)
[2021-02-05] MEDS: buPROPion HCl XL 300 MG TAB.ER.24H PO (08:38)
[2021-02-05] MEDS: amantadine HCL 100 MG CAPSULE PO (08:38)
[2021-02-05] MEDS: Lithium Carbonate ER 450 MG TABLET.ER PO (08:38)
[2021-02-05] MEDS: Cariprazine HCl 3 MG CAPSULE PO (08:38)
[2021-02-05 10:00] LABS: COVID-19 Test Negative (Negative)
[2021-02-05] MEDS: Lidocaine 4 % Patch ADH..PATCH 1 PATCH TRANSDERMA (11:17)
--- NOTE | 2021-02-05 17:33 | P.PNPSI_ITS ---
Subjective Subjective Date of Service: 02/05/21 Reason For Visit: Depression Subjective Notes: Conditional Voluntary Interim History: Patient future oriented state it is agreeable to applying to senior housing will go home with sister future oriented denies SI Medication Compliance: Yes Mental Status Exam Mental Status Exam Patient Appearance: Appropriate Patient Orientation: Person, Place, Time and Situation Level of Consciousness: Alert Patient Behavior: Talkative Mood Description: Flat Affect Description: Flat Ability to Follow Directions: Good Speech Pattern: Spontaneous Speech Memory Description: Intact Hallucinations: None Delusions: Not Present Thought Process: Goal Oriented Thought Content: positive for Goal Oriented Depressive Symptoms: Increased Anxiety Judgement: Fair Diagnostics Vital Signs (24Hr): Vital Signs - 24 hr 02/05/21 06:00 Temperature 96.8 F Pulse Rate 72 Respiratory Rate 16 Blood Pressure 142/75 H Pulse Oximetry 99 BMI result Body Mass Index 40.4 Labs Results: 01/24/21 15:20 02/02/21 08:11 Labs: Laboratory Results - last 48 hr 02/05/21 09:05 COVID-19 ([facility]) Negative COVID-19 Clin Com See Note Imaging Radiology Impressions: ITS Impressions Brain MRI 01/24/21 20:15 IMPRESSION: 1. No acute intracranial abnormalities. 2. Mild underlying microangiopathy and generalized cerebral volume loss. Medications Medications Current Medications Acetaminophen (Acetaminophen 325 Mg Tablet) 650 mg PO Q6H PRN PRN Reason: Pain, Moderate (Pain Scale 4-6 Last Admin: 02/01/21 22:09 Dose: 650 mg Documented by: Amantadine HCl (Amantadine Hcl 100 Mg Capsule) 100 mg PO DAILY [facility] Last Admin: 02/05/21 08:38 Dose: 100 mg Documented by: Atorvastatin Calcium (Atorvastatin Calcium 20 Mg Tablet) 20 mg PO BEDTIME [facility] Last Admin: 02/04/21 20:56 Dose: 20 mg Documented by: Bupropion HCl (Bupropion Hcl Xl 300 Mg Tab.Er.24h) 300 mg PO DAILY [facility] Last Admin: 02/05/21 08:38 Dose: 300 mg Documented by: Cariprazine (Cariprazine Hcl 3 Mg Capsule) 3 mg PO DAILY [facility] Last Admin: 02/05/21 08:38 Dose: 3 mg Documented by: Levothyroxine Sodium (Levothyroxine Sodium 100 Mcg Tablet) 100 mcg PO DAILY@0600 [facility] Last Admin: 02/05/21 06:12 Dose: 100 mcg Documented by: Lidocaine (Lidocaine 4 % Patch Adh..Patch) 1 patch TRANSDERMA DAILY [facility]; Protocol Last Admin: 02/05/21 11:17 Dose: 1 patch Documented by: [place] Carbonate ([place] Carbonate Er 450 Mg Tablet.Er) 450 mg PO DAILY [facility] Last Admin: 02/05/21 08:38 Dose: 450 mg Documented by: Omeprazole (Omeprazole 20 Mg Capsule.Dr) 20 mg PO DAILY@0630 [facility] Last Admin: 02/05/21 06:12 Dose: 20 mg Documented by: Ondansetron HCl (Ondansetron Odt 4 Mg Tab.Rapdis) 4 mg TRANSLINGU Q8H PRN PRN Reason: nausea and vomiting Vortioxetine (Vortioxetine Hydrobromide 20 Mg Tablet) 20 mg PO DAILY [facility] Last Admin: 02/05/21 08:38 Dose: 20 mg Documented by: Allergies Allergies Allergy/AdvReac Type Severity Reaction Status Date / Time No Known Allergies Allergy Verified 11/24/20 10:29 Assessment & Plan Assessment & Plan (1) Bipolar disorder with severe depression: Status: Acute Code(s): F31.4 - Bipolar disorder, current episode depressed, severe, without psychotic features Assessment and Plan: Continue Vryalar lithium check labs increased [id number] increase vyraylar 3 mg physical therapy consult discharge planning call placed to [facility] seem safe for discharge tomorrow (2) Generalized anxiety disorder: Status: Acute Code(s): F41.1 - Generalized anxiety disorder (3) Parkinsonian syndrome: Status: Acute Code(s): G20 - Parkinson's disease Assessment and Plan: Case reviewed with Dr. Posey (4) Suicide attempt by drug ingestion: Status: Acute Code(s): T50.902A - Poisoning by unspecified drugs, medicaments and biological substances, intentional self-harm, initial encounter Assessment and Plan: Patient appears to be status post drug overdose after stockpiling morning meds for. Of time. This appear to have caused a delirium and balance problems. [place] levels from [address] [place] [address] rehab setting and [facility] were in the 1.01.2 range unclear what the patient may have been in the community. Has parkinsonian symptoms will lower Vryalar to 1.5 mg start Mirapex for depression and parkinsonian symptoms check labs EKG head of the MRI shows volume loss microvascular problems but no evidence of CVA Continue lithium Vryalar Wellbutrin Trintellix at present. Re-evaluate patient's ability to live at home alone. Will look at discharge alternatives and is currently accepting helpful try to get family involvement. Patient does have a history of quite significant suicide attempts in the past. Continue present medication encourage problem is solving maintain perspective family meeting to help with discharge planning and safety I spent minutes with the patient and/or on the patient floor today, gr eater than?50% of which was spent counseling/coordinating care. Reason for contiued inpatient stay Substantial Risk for: inability to function and rapid decompensation
[2021-02-05 21:00] VITALS: BP 154/70; PULSE 93; TEMP 35.8; O2SAT 93
[2021-02-05] MEDS: Atorvastatin Calcium 20 MG TABLET PO (21:03)
[2021-02-06 06:00] VITALS: BP 137/73; PULSE 74; RESP 16; TEMP 36.3; O2SAT 100
[2021-02-06] MEDS: Omeprazole 20 MG CAPSULE.DR PO (06:13)
[2021-02-06] MEDS: Levothyroxine Sodium 100 MCG TABLET PO (06:13)
[2021-02-06] MEDS: Lithium Carbonate ER 450 MG TABLET.ER PO (08:45)
[2021-02-06] MEDS: Vortioxetine Hydrobromide 20 MG TABLET PO (08:45)
[2021-02-06] MEDS: buPROPion HCl XL 300 MG TAB.ER.24H PO (08:45)
[2021-02-06] MEDS: amantadine HCL 100 MG CAPSULE PO (08:45)
[2021-02-06] MEDS: Cariprazine HCl 3 MG CAPSULE PO (08:45)
[2021-02-06] MEDS: Lidocaine 4 % Patch ADH..PATCH 1 PATCH TRANSDERMA (08:45)
--- NOTE | 2021-02-06 13:21 | PM.PSYDC ---
DS: Providers Provider Date of Service: 01/24/21 Date of admission: 01/24/21 17:28 Date of discharge: 01/24/21 Primary care physician: Arvind Baez MD Attending physician on admission: Ramin Iqbal Consults: 01/26/21 16:39 Consult to Neurology Routine Consulting Provider: [facility] Reason for consultation: gait disturbance cogwheeling ?OD visual white see mri >? AMANTADINE Has provider been notified: No Attending physician on discharge: Ramin Iqbal DS: Diagnosis Discharge Diagnosis (1) Bipolar disorder with severe depression: Status: Acute (2) Generalized anxiety disorder: Status: Acute (3) Parkinsonian syndrome: Status: Resolved (4) Suicide attempt by drug ingestion: DS: Medications Discharge Medications Home Medications: Home Medications Medication Instructions Recorded Confirmed atorvastatin 20 mg tablet 20 mg PO BEDTIME 12/30/19 01/24/21 cariprazine 3 mg capsule 3 mg PO DAILY 07/14/20 01/24/21 Previous Rx's Medication Instructions Recorded ondansetron HCl 4 mg tablet 4 mg PO Q8H PRN #10 tab 12/25/20 (Zofran) amantadine HCl 100 mg capsule 100 mg PO DAILY 30 Days #30 cap 02/06/21 bupropion HCl 300 mg 24 hr tablet, 300 mg PO DAILY 30 Days #30 tab 02/06/21 extended release levothyroxine 100 mcg tablet 100 mcg PO DAILY 30 Days #30 tab 02/06/21 lidocaine 4 % topical patch 1 patch TRANSDERMAL DAILY 30 Days 02/06/21 (Lidocaine Pain Relief) #30 ea lithium carbonate 450 mg 450 mg PO DAILY 30 Days #30 tab 02/06/21 tablet,extended release oxcarbazepine 300 mg tablet 300 mg PO BEDTIME #30 tab 02/06/21 (Trileptal) pantoprazole 40 mg tablet,delayed 40 mg PO DAILY 30 Days #30 tab 02/06/21 release vortioxetine 20 mg tablet 20 mg PO DAILY 30 Days #30 tab 02/06/21 Mental Status Exam Mental Status Exam Patient Appearance: Appropriate Patient Orientation: Person, Place, Time and Situation Level of Consciousness: Alert Patient Behavior: Talkative and Good Eye Contact Mood Description: Appropriate and Flat Affect Description: Flat and Apprehensive (Mildly) Patient Cognition Impaired: No Ability to Follow Directions: Good Speech Pattern: Spontaneous Speech Memory Description: Intact Hallucinations: None Delusions: Not Present Thought Process: Goal Oriented Thought Content: positive for Goal Oriented Depressive Symptoms: Increased Anxiety Judgement: Fair Judgement and Insight: Patient agreeable to trying to transition out of untenable home setting in the long run feels more supported by family agreeable to visiting nurse Data Imaging Diagnostic Imaging Impressions Brain MRI 01/24/21 20:15 IMPRESSION: 1. No acute intracranial abnormalities. 2. Mild underlying microangiopathy and generalized cerebral volume loss. DS: Summary Hospital Course Hospital Course: Signed Patient: Rachael Jones DMR#: [id number]: 9Acct:[id number]/Sex: 60 / FLoc:[id number]: Candelario Serrano MD cc: ~ HPI Date of Service: 01/25/21 Chief Complaint: Depression Sources of Information: patient interviewed and chart reviewed Additional Sources of Information: sister brother rehab ctr HPI Subjective Notes: [place] Warning and Conditional Voluntary Healthcare Proxy: No Guardianship: No Medical Problems Affecting Mental Status: Yes Narrative: The patient is a 60-year-old single female living alone long history bipolar disorder, generalized anxiety and history of recurrent depression with past suicide attempts. The patient has gradually over number of years taking a downhill course missing multiple appointments with her physicians not following through on opportunities to leave the house and mostly has been spending most of her time at home often with her refer sleep cycle. Patient the past had been able to work on a regular basis but has not followed through generally in a number of years and has become increasingly isolative. Most recently she has been on Vraylar up to 3 mg daily Trintellix 20 mg daily Wellbutrin 100 50 mg daily lithium 450 mg at bedtime patient had been discontinued from Depakote. She does have Ambien 5 mg at bedtime as needed for sleep. Patient is unable to give a clear history but the patient over the last few weeks ago onto the emergency room on 2 occasions and appears to have stopped her psychiatric medication and may have been reporting them. She does not have clear memory about this but that she was brought to the emergency room secondary to multiple falls and confusion. She was medically screened at [facility] eventually 5 referred to rehab secondary to deconditioning and multiple falls. Patient is not using a walker she does have significant knee problems and an MRI completed in the emergency room showed atrophy but no evidence for CVA. delirium paranoia status post multiple falls confusional state unclear etiology Past Psychiatric History: Long history of bipolar disorder characterized by a hypomanic episodes not psychotic and much longer periods of quite significant depression. Patient has become increasingly isolated over the years with significant financial stress and burden feeling overwhelmed taking care of a house by herself that needs extensive repairs Patient does have a history of serious overdose attempts in psychiatric hospitalization in the past she [facility]. Medical Evaluation Reviewed: Yes [facility] Medical History (Updated 01/25/21 @ 17:18 by Ramin Iqbal MD) Generalized anxiety disorder Knee pain Morbid obesity Post-menopausal Screening for breast cancer Screening for colon cancer Suicide attempt by drug ingestion Surgical History No pertinent past surgical history Family History: Has a sister with MS Social History: Patient is single living in her family home of origin by herself. Patient is financially strapped house needs extensive repairs she has been quite isolative and not taking care of herself. She does have a sister with MS with whom she is close and also a brother Substance History: none Trauma History: none known Diagnostics Vital Signs (24Hr):Vital Signs - 24 hr 01/24/21 18:00 01/25/21 05:46 Temperature 96.9 F 97.2 F Pulse Rate 78 85 Respiratory Rate 16 18 Blood Pressure 118/74 138/83 Pulse Oximetry 100 99 BMI result Body Mass Index 39.3 Labs Results: 01/24/21 15:20 document embedded image 01/24/21 15:20 document embedded image Labs:Laboratory Results - last 48 hr 01/24/21 01/24/21 01/24/21 14:46 15:20 15:20 WBC 9.5 RBC 4.56 Hgb 13.5 Hct 43.7 MCV 95.8 MCH 29.6 MCHC 30.9 L RDW 15.0 Plt Count 285 MPV 10.5 Immature Gran % (Auto) 0.3 Neut % (Auto) 57.7 Lymph % (Auto) 31.2 Dundy % (Auto) 7.0 Eos % (Auto) 3.2 Baso % (Auto) 0.6 Lymph # (Auto) 3.0 Dundy # (Auto) 0.7 Eos # (Auto) 0.3 Baso # (Auto) 0.1 Abs Immat Gran (auto) 0.03 Absolute Neuts (auto) 5.5 Absolute Nucleated RBC 0.000 Nucleated RBC % (auto) 0.0 Sodium 140 Potassium 4.2 D Chloride 106 Carbon Dioxide 27 Anion Gap 11 L BUN 13 Creatinine 1.23 Estim Creat Clear Calc 51.3 Estimated GFR 44 Random Glucose 118 H Calcium 9.9 Total Bilirubin 0.4 AST 39 H D ALT 42 H Alkaline Phosphatase 73 Total Protein 8.3 H Albumin 4.1 Lipase 25 TSH 1.85 Urine Color Urine Appearance Urine pH Ur Specific [place] Urine Protein Urine Glucose (UA) Urine Ketones Urine Blood Urine Nitrite Ur Leukocyte Esterase Salicylates < 5.0 L Urine Opiates Screen Urine Fentanyl Screen Acetaminophen < 1 Ur Barbiturates Screen Ur Phencyclidine Scrn Ur Amphetamines Screen U Benzodiazepines Scrn [place] Urine Cocaine Screen U Marijuana (THC) Screen Ethyl Alcohol COVID-19 ([facility]) Negative COVID-19 Clin Com See Note 01/24/21 01/24/21 01/24/21 15:20 15:20 16:29 WBC RBC Hgb Hct MCV MCH MCHC RDW Plt Count MPV Immature Gran % (Auto) Neut % (Auto) Lymph % (Auto) [place] % (Auto) Eos % (Auto) Baso % (Auto) Lymph # (Auto) Dundy # (Auto) Eos # (Auto) Baso # (Auto) Abs Immat Gran (auto) Absolute Neuts (auto) Absolute Nucleated RBC Nucleated RBC % (auto) Sodium Potassium Chloride Carbon Dioxide Anion Gap BUN Creatinine Estim Creat Clear Calc Estimated GFR Random Glucose Calcium Total Bilirubin AST ALT Alkaline Phosphatase Total Protein Albumin Lipase TSH Urine Color Urine Appearance Urine pH Ur Specific [place] Urine Protein Urine Glucose (UA) Urine Ketones Urine Blood Urine Nitrite Ur Leukocyte Esterase Salicylates Urine Opiates Screen Not Detected Urine Fentanyl Screen Not Detected Acetaminophen Ur Barbiturates Screen Not Detected Ur Phencyclidine Scrn Not Detected Ur Amphetamines Screen Not Detected U Benzodiazepines Scrn Not Detected [place] 0.36 L Urine Cocaine Screen Not Detected U Marijuana (THC) Screen Not Detected Ethyl Alcohol < 10 COVID-19 ([facility]) COVID-19 Clin Com 01/24/21 16:29 WBC RBC Hgb Hct MCV MCH MCHC RDW Plt Count MPV Immature Gran % (Auto) Neut % (Auto) Lymph % (Auto) [place] % (Auto) Eos % (Auto) Baso % (Auto) Lymph # (Auto) [place] # (Auto) Eos # (Auto) Baso # (Auto) Abs Immat Gran (auto) Absolute Neuts (auto) Absolute Nucleated RBC Nucleated RBC % (auto) Sodium Potassium Chloride Carbon Dioxide Anion Gap BUN Creatinine Estim Creat Clear Calc Estimated GFR Random Glucose Calcium Total Bilirubin AST ALT Alkaline Phosphatase Total Protein Albumin Lipase TSH Urine Color DK YELLOW Urine Appearance CLEAR Urine pH 6.0 Ur Specific [place] 1.025 Urine Protein NEG Urine Glucose (UA) NEG Urine Ketones NEG Urine Blood NEG Urine Nitrite NEG Ur Leukocyte Esterase NEG Salicylates Urine Opiates Screen Urine Fentanyl Screen Acetaminophen Ur Barbiturates Screen Ur Phencyclidine Scrn Ur Amphetamines Screen U Benzodiazepines Scrn [place] Urine Cocaine Screen U Marijuana (THC) Screen Ethyl Alcohol COVID-19 ([facility]) COVID-19 Clin Com Imaging Radiology Impressions: ITS Impressions Brain MRI 01/24/21 20:15 IMPRESSION: 1. No acute intracranial abnormalities. 2. Mild underlying microangiopathy and generalized cerebral volume loss. Meds/Allergies Meds Home Medications Acetaminophen (Acetaminophen 325 Mg Tablet) 650 mg PO Q6H PRN PRN Reason: Pain, Moderate (Pain Scale 4-6 Last Admin: 01/25/21 14:28 Dose: 650 mg Documented by: Atorvastatin Calcium (Atorvastatin Calcium 20 Mg Tablet) 20 mg PO BEDTIME [facility] Last Admin: 01/24/21 21:32 Dose: 20 mg Documented by: Bupropion HCl (Bupropion Hcl Xl 150 Mg Tab.Er.24h) 150 mg PO DAILY [facility] Last Admin: 01/25/21 09:06 Dose: 150 mg Documented by: Cariprazine (Cariprazine Hcl 1.5 Mg Capsule) 1.5 mg PO DAILY [facility] Levothyroxine Sodium (Levothyroxine Sodium 100 Mcg Tablet) 100 mcg PO DAILY@0600 [facility] Last Admin: 01/25/21 05:42 Dose: 100 mcg Documented by: [place] Carbonate ([place] Carbonate Er 450 Mg Tablet.Er) 450 mg PO DAILY [facility] Last Admin: 01/25/21 09:06 Dose: 450 mg Documented by: Omeprazole (Omeprazole 20 Mg Capsule.Dr) 20 mg PO DAILY@0630 [facility] Last Admin: 01/25/21 05:42 Dose: 20 mg Documented by: Ondansetron HCl (Ondansetron Odt 4 Mg Tab.Rapdis) 4 mg TRANSLINGU Q8H PRN PRN Reason: nausea and vomiting Vortioxetine (Vortioxetine Hydrobromide 20 Mg Tablet) 20 mg PO DAILY [facility] Last Admin: 01/25/21 09:05 Dose: 20 mg Documented by: Zolpidem Tartrate (Zolpidem Tartrate 5 Mg Tablet) 5 mg PO BEDTIME [facility] Last Admin: 01/24/21 21:32 Dose: 5 mg Documented by: Allergies Allergies Allergy/AdvReac Type Severity Reaction Status Date / Time No Known Allergies Allergy Verified 11/24/20 10:29 Mental Status Exam Mental Status Exam Narrative: Patient is a somewhat overweight female she has a walker she is casually dressed reasonably groomed. Patient is cooperative to the interview. Some degree of superficial brightness. Mood is somewhat anxious at times expansive she is alert knows the year month place reason she is here. Patient does state that she had often stop taking her morning pills and may have been stockpiling pills. She reports periods at the rehab center where she felt people were talking about her insight conspiring against her. No clear hallucinations sensorium seems clear at this time impulse control intact in this setting feels quite fearful that she might have harmed herself if she were back home. Insight judgment impaired present impulse control seems intact she is walking with the aid of a walker Assessment & Plan Assessment & Plan (1) Bipolar disorder with severe depression: Status: Acute Code(s): F31.4 - Bipolar disorder, current episode depressed, severe, without psychotic features (2) Generalized anxiety disorder: Status: Acute Code(s): F41.1 - Generalized anxiety disorder (3) Parkinsonian syndrome: Status: Acute Code(s): G20 - Parkinson's disease (4) Suicide attempt by drug ingestion: Status: Acute Code(s): T50.902A - Poisoning by unspecified drugs, medicaments and biological substances, intentional self-harm, initial encounter Assessment and Plan: Patient appears to be status post drug overdose after stockpiling morning meds for. Of time. This appear to have caused a delirium and balance problems. [place] levels from [address] [place] [address] rehab setting and [facility] were in the 1.01.2 range unclear what the patient may have been in the community. Has parkinsonian symptoms will lower Vryalar to 1.5 mg start Mirapex for depression and parkinsonian symptoms check labs EKG head of the MRI shows volume loss microvascular problems but no evidence of CVA Continue lithium Vryalar Wellbutrin Trintellix at present. Re-evaluate patient's ability to live at home alone. Will look at discharge alternatives and is currently accepting helpful try to get family involvement. Patient does have a history of quite significant suicide attempts in the past. She has seen Dr. nithya Foote in the past. Depakote had been discontinued over the past year Patient educated on: diagnosis, medication risk/benefits, therapeutic strategies and medical condition Informed Consent: understands Reason for continued inpatient stay Substantial Risk for: harm to self, inability to function and med/psych decompensation Hospital course Hospital course The patient was admitted to the hospital on a conditional voluntary she was still dealing with issues related to paranoid concerns that she had at the rehab hospital. It appears that she had not been taking Trintellix Wellbutrin or Vryalar for an extended period of time and appears she may have overdosed and put herself in a delirious state prior to her evaluation at [facility]. The patient had been chronically demoralized mostly housebound and although she had been denying suicidality there is a history of suicide attempts and the patient did have a stockpile of medications because she had not been taking her morning medication. It could not be absolutely confirmed but there was no other obvious cause to her multiple falls and confusional state. The patient did use a walker and her sensorium was generally clear outside of 2 brief episodes of visual hallucinations the patient was restarted on Vryalar Trintellix Wellbutrin gradually and she generally showed a full range of affect in although chronically demoralized did feel supported by her brother and sister. She was amenable to making application to senior housing in her [place] we had also discussed the possibility of assisted living. The patient during the hospitalization was seen by Neurology who did not note significant parkinsonian symptoms of the patient did have some degree of balance problems An MRI was completed which showed microangiopathy and some degree of volume loss. Her [place] was unremarkable We did arrange for her to be seen daily by visiting nurse . Patient was pleasant future oriented at time of discharge no thoughts of self-harm Status at Discharge Cognitive/behavioral status at discharge: Patient alert oriented executive functioning reasoning appeared intact. Patient was calm future oriented Functional status at discharge: uses cane/walker Overall status at discharge: patient is progressing back to baseline Time Spent with Patient Time attestation: Total time spent providing and/or coordinating discharge services: Specific discharge activities: Patient seen case reviewed with social Work case discussed nursing staff neurology physical therapy reviewed Discharge Plan Discharge Patient Disposition: Home, Self-Care Discharge Diagnosis: bipolar disorder 1 depressed THAI s/p drug ingestion Referrals: TEGAN EASLEY VISITING RN [Other] - 1 Week (Fax- [phone]) Eleanor Weaver [Other] - 02/14/21 3:30 pm (Follow-up appointment with outpatient therapist after discharge from [facility] In person appointment at [facility] in [place]) Ramin Iqbal [Other] - 02/21/21 9:00 am (Follow-up psychiatry appointment after discharge from [facility] ) Arvind Baez MD [Primary Care Provider] - 02/14/21 11:00 am (in office) Discharge Medications: New lidocaine [Lidocaine Pain Relief] 4 % Adhesive Patch,Medicated 1 patch transdermal DAILY 30 Days Qty: 30 RF: 0 amantadine HCl 100 mg Capsule 100 mg PO DAILY 30 Days Qty: 30 RF: 0 bupropion HCl 300 mg Tablet Extended Release 24 Hr 300 mg PO DAILY 30 Days Qty: 30 RF: 0 oxcarbazepine [Trileptal] 300 mg tablet 300 mg PO BEDTIME Qty: 30 RF: 1 Continued ondansetron HCl [Zofran] 4 mg tablet 4 mg PO Q8H PRN (Reason: nausea and vomiting) Qty: 10 RF: 0 lithium carbonate 450 mg tablet extended release 450 mg PO DAILY 30 Days Qty: 30 RF: 0 pantoprazole 40 mg tablet,delayed release (DR/EC) 40 mg PO DAILY 30 Days Qty: 30 RF: 0 vortioxetine 20 mg tablet 20 mg PO DAILY 30 Days Qty: 30 RF: 0 atorvastatin 20 mg tablet 20 mg PO BEDTIME RF: 0 cariprazine 3 mg capsule 3 mg PO DAILY RF: 0 Changed levothyroxine 100 mcg tablet 100 mcg PO DAILY 30 Days Qty: 30 RF: 0 Discontinued bupropion HCl 200 mg tablet sustained-release 12 hr 1 tab PO QAM RF: 0 zolpidem 5 mg tablet 5 mg PO BEDTIME RF: 0 Discharge Orders: Discharge Order (Routine); Ordered 02/06/21 Ordered By: Ramin Iqbal Diet: advance to usual diet Activity on Discharge: Use cane or walker Stand Alone Forms: Patient Portal Discharge page, Community Support Care Plan Goals: stable mood not ovcerly depressed no suicdal behavior take medication as prescribed Health Concerns: depressed mood gait disturbance Plan of Treatment: medication therapy referral to pt [facility] Assessment: improved mood and ambulation denies si Discharge Date/Time: 02/06/21 11:20
== END 2021-02-06 11:20 | disposition home or self-care (01) | DRG 885 ==
LOC: HO.ED 12:35 → HO.PM5 17:36
PROVIDERS: Clinical Nurse Specialist Psychiatric/Mental Health, Adult; Admitting Provider Psychiatry & Neurology Psychiatry; Emergency Provider Emergency Medicine Emergency Medical Services; PCP Internal Medicine; Visit Provider Psychiatry & Neurology Psychiatry
DX: F31.4 Bipolar disorder, current episode depressed, severe, without psychotic features (principal); Z68.41 Body mass index [BMI] 40.0-44.9, adult; R45.851 Suicidal ideations; M19.90 Unspecified osteoarthritis, unspecified site; F41.1 Generalized anxiety disorder; E66.3 Overweight; G20 Parkinson's disease; T50.902A Poisoning by unspecified drugs, medicaments and biological substances, intentional self-harm, initial encounter; Z20.822 Contact with and (suspected) exposure to COVID-19; Z79.890 Hormone replacement therapy; Z79.899 Other long term (current) drug therapy
CPT/HCPCS: 36415; 70551; 80053; 80143; 80178; 80179; 80307; 81003; 82077; 83690; 84443; 85025; 87635; 93005; 95816; 97161; 99285